=== PATIENT | male | born 1975 | race Caucasian/White ===

== ENCOUNTER 2020-03-22 12:57 | Emergency (ER) | payer MEDICARE, MEDICAID, SELFPAY ==
[2020-03-22 13:05] VITALS: BP 127/83; PULSE 71; RESP 14; TEMP 36.3; O2SAT 98; BMI 22.1
--- NOTE | 2020-03-22 13:13 | W.ED.GENADLT ---
HPI - General Adult General: Chief complaint: General Medical Stated complaint: MEDICATION REFILL Time Seen by Provider: 03/22/20 13:10 Source: patient Mode of arrival: ambulatory Limitations: no limitations History of Present Illness: HPI narrative: Patient is a very nice and polite 44-year-old male who presents to the ED today hoping to get help with a medication refill that he takes for anxiety. Patient tells me he normally takes Klonopin 1 mg twice daily for his anxiety and paranoid schizophrenia. He states he has recently moved to [place] and has been in and out of homeless shelters. He states his last group home took all of his medications and dispensed them into daily pill organizers and states in the process lost 4 tablets of his Klonopin. Patient tells me he forgot today was Tuesday and forgot to contact his prescribing physician on Tuesday for a refill. He states he is planning on contacting them on Tuesday. He is requesting enough medication to last him today and tomorrow. Review of Systems Psych: Reports: anxiety; Denies: irritability, suicidal ideation or homicidal ideation Physical Exam Const: COMMON NORMALS: no acute distress, average body habitus, patient oriented x3, no limitations, healthy appearing, alert and well nourished Neuro: COMMON NORMALS: patient oriented x3 SENSORIUM/ORIENTATION: Yes alert Psych: COMMON NORMALS: mental status grossly normal, Normal thought process present, cooperative, normal affect, speech normal, activity/motor behavior normal, denies hallucinations, denies homicidal ideation and denies suicidal ideation APPEARANCE: Yes grossly normal ATTITUDE: Yes calm ACTIVITY/MOTOR BEHAVIOR: Yes appropriate eye contact SPEECH: Yes normal speech MOOD & AFFECT: Yes euthymic mood THOUGHT PROCESS: Normal thought process present THOUGHT CONTENT: Yes Normal thought content present ATTENTION/CONCENTRATION: Yes attention grossly intact and Yes concentration grossly intact MEMORY/COGNITION: Yes memory grossly intact and Yes cognition grossly intact INSIGHT: Good insight present (Psych) JUDGEMENT: Good judgement present (Psych) Course Vital Signs: Vital signs: Vital Signs Temperature 97.3 F L 03/22/20 13:05 Pulse Rate 71 03/22/20 13:05 Respiratory Rate 14 03/22/20 13:05 Blood Pressure 127/83 03/22/20 13:05 Pulse Oximetry 98 03/22/20 13:05 MDM - General Adult MDM Narrative: Medical decision making narrative: Patient is concerned that the pharmacy will not be able to bill the Medicaid for the 4 tablets of Klonopin since he technically ran out early. Patient tells me he has absolutely no money to fill a prescription. I will write him for 5 tablets of Ativan in hopes that maybe they will fill this. Patient was told to tell the pharmacy to contact me if they have any questions. Discharge Plan Discharge Patient Disposition: Home Clinical Impression: Anxiety, Paranoid schizophrenia Condition: Stable Prescriptions: New lorazepam 1 mg tablet 1 mg PO BID PRN (Reason: anxiety) Qty: 5 RF: 0 No Action Unable to Assess RF: 0 Discharge Orders: Discharge ED (Routine); Ordered 03/22/20 Ordered By: Peace Clarke Patient Instructions: Lorazepam (By mouth), Anxiety (ED) Coding Level of Care Code ED Email Marketing Specialist for Germán Sherwood
== END 2020-03-22 13:29 | disposition home or self-care (01) ==
PROVIDERS: Emergency Provider Physician Assistant
DX: F41.9 Anxiety disorder, unspecified (principal); F20.0 Paranoid schizophrenia
CPT/HCPCS: 12345; 99281

== ENCOUNTER → 2020-04-24 08:38 | Outpatient (BNVA) | payer MEDICARE, MEDICAID, SELFPAY | PROVIDERS: Visit Provider Psychiatry & Neurology Psychiatry | DX: F10.20 Alcohol dependence, uncomplicated (principal); F12.20 Cannabis dependence, uncomplicated; F15.21 Other stimulant dependence, in remission; F17.200 Nicotine dependence, unspecified, uncomplicated | CPT/HCPCS: 99204 ==

== ENCOUNTER 2020-06-15 18:34 | Inpatient (IN) | payer MEDICARE, MEDICAID, SELFPAY ==
[2020-06-15 18:43] VITALS: BP 152/102; PULSE 75; RESP 18; O2SAT 96; BMI 19.2
--- NOTE | 2020-06-15 18:55 | PC.NURSE ---
Pt belongings and clothing removed, labeled and placed in psych cabinet. Pt has a black [place] tech shoulder backpack that contains knives that was sent to security.
--- NOTE | 2020-06-15 18:57 | XR_ITS ---
WS: [id number] PORTABLE CHEST HISTORY: sob COMPARISON: None available. Marked hyperexpansion of the lungs. There is a large bulla involving nearly 50% of the RIGHT thorax. Bullous centered in the RIGHT upper lung. Soft tissue noncalcified nodule measuring 10 mm in the RIGH T lung. This could potentially be a nipple shadow. No pleural effusion or pneumothorax. Cardiac size: Normal. Mediastinum/Aorta: Normal mediastinum. No osseous abnormality seen. XR/XR chest 1V portable [id number] IMPRESSION: 1. No pneumonia. 2. Large RIGHT upper lobe bulla. 3. 10 mm noncalcified nodule in the central RIGHT lung. Potentially this could be a nipple shadow or lung nodule. Recommend follow-up chest radiograph with n ipple markers.
[2020-06-15 19:16] VITALS: BP 134/91; PULSE 68; RESP 16; O2SAT 98
[2020-06-15 19:21] LABS: Add Urine Microscopic? NO; Charge for UA Resulting for Rev
[2020-06-15 19:22] LABS: Basophils # 0.1 10^3/uL (0.0-0.1); Basophils % 1.5 %; Eosinophils # 0.4 10^3/uL (0.0-0.8); Eosinophils % 5.1 %; Hemoglobin 16.4 g/dL (11.7-16.6); Lymphocytes # 2.4 10^3/uL (0.8-4.8); Lymphocytes % 34.5 %; Mean Corpuscular HGB Conc 33.5 g/dL (30.0-36.0); Mean Corpuscular Volume 89.6 fL (80-94); Mean Platelet Volume 10.7 fL (7.4-10.4); Monocytes # 0.8 10^3/uL (0.2-0.9); Monocytes % 10.9 %; Neutrophils # 3.28 10^3/uL (1.8-7.7); Neutrophils % 47.7 %; Nucleated Red Blood Cells % 0 %; Platelet Count 305 10^3/cmm (130-400); Red Blood Count 5.47 10^6/uL (4.1-5.3); Red Cell Distribution Width 13.6 % (12.1-15.1); White Blood Count 6.9 10^3/uL (4.0-10.0)
[2020-06-15 19:23] LABS: Bilirubin Urine Neg (Negative); Blood Urine Neg (Negative); Glucose Urine UA Norm (Normal); Ketones Urine Negative (Negative); Leukocyte Esterase Urine Negative (Negative); Nitrate Urine Negative (Negative); Protein Urine Neg (Negative); Specific Gravity, Urine 1.005 (1.005-1.030); Urine Appearance Clear (CLEAR); Urine Color Yellow (Yellow); Urobilinogen Urine Norm (Negative); pH Urine 7 (5-7)
[2020-06-15 19:33] LABS: Amphetamines Screen Urine Negative (Negative); Barbiturates Screen Urine Negative (Negative); Benzodiazepines Screen Urine Negative (Negative); Cocaine Screen Urine Negative (Negative); Opiate Screen Urine Negative (Negative); PCP Screen Urine Negative (Negative); THC Screen Urine Negative (Negative)
[2020-06-15 19:35] VITALS: PULSE 50
[2020-06-15 19:38] LABS: Alanine Aminotransferase 151 U/L (0-41); Albumin Level 4.2 g/dL (3.5-5.2); Alkaline Phosphatase 146 IU/L (40-130); Anion Gap 12.9 (5-19); Aspartate Amino Transferase 78 U/L (0-40); Blood Urea Nitrogen 13 mg/dL (6-20); Carbon Dioxide 26 mmol/L (22-29); Chloride 100 mmol/L (98-107); Globulin 2.8 g/dL (1.3-4.6); Glomerular Filtration Rate 120.9 mL/min (90-130); Glucose 73 mg/dL (65-115); Osmolality Calculated 279 mOsm/kg (285-295); Potassium 3.9 mmol/L (3.5-5.1); Sodium 135 mmol/L (136-145); Total Bilirubin 0.3 mg/dL (0.15-1.2)
[2020-06-15 19:41] LABS: Acetaminophen < 5.0 ug/mL (10-30); Alcohol Level < 10 mg/dL (0-10); Salicylate < 0.3 mg/dL (3-10)
[2020-06-15 21:05] VITALS: BP 136/85; PULSE 87; RESP 18; TEMP 37; O2SAT 95
[2020-06-15] MEDS: nicotine 2 mg Gum BUCCAL (21:40)
[2020-06-15 21:50] VITALS: RESP 18
--- NOTE | 2020-06-15 23:18 | ECG_ITS ---
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
--- NOTE | 2020-06-16 01:11 | PC.NURSE ---
Skin assessment revealed no wounds or injuries.
--- NOTE | 2020-06-16 02:06 | ED_ITS ---
HPI - Psych General: Chief Complaint: Psychiatric Symptoms Stated Complaint: SI, trouble breathing Time Seen by Provider: 06/15/20 18:51 History of Present Illness: HPI Narrative: 45-year-old male with a history of paranoid schizophrenia. He states that he has been out of his medicine for over a month. He hears voices. Most recently in the past couple days he has become suicidal, having thoughts about shooting himself in the head. He has access to his girlfriends gun. There were knives found in his bag on arrival. MD complaint: suicidal ideation Onset (ago): day(s) Duration: constant History of same: Yes Relieving factors: none Exacerbating factors: none Associated symptoms: Reports auditory hallucinations, delusions and suicidal ideation; Deny visual hallucinations If self harm: admits thoughts of self harm and has plan Review of Systems Const: Denies: fever(s) or chills Eyes: Denies: change in vision ENMT: Denies: odynophagia or sinus pain Card: Denies: chest pain, palpitations or irregular heart rhythm Resp: Reports: dyspnea and non-productive cough; Denies: productive cough or wheezing GI: Denies: abdominal pain, nausea or vomiting : Denies: difficulty urinating or hematuria Musc: Denies: neck pain Skin/Breast: Denies: rash or erythema Neuro: Denies: headache(s), dizziness or vertigo Psych: Reports: auditory hallucinations and suicidal ideation; Denies: visual hallucinations [facility] ED PFSH: Social History (Updated 04/24/20 @ 08:54 by Kristian Ryan LPN) Smoking and tobacco status: current every day smoker cigarettes Packs smoked per day: 1 Years cigarettes smoked: 30 Quit status (tobacco): has tried quititng Number of times tried to quit tobacco: 5 Second hand smoke exposure: No Physical Exam Const: GENERAL APPEARANCE: cooperative, disheveled and frail appearing ORIENTATION/CONSCIOUSNESS: Yes oriented to person, Yes oriented to place and Yes oriented to time HENMT: COMMON NORMALS: normocephalic, external ears normal and Normal external nose present HEAD & SCALP: normocephalic FACE & SINUS: normal facial exam NOSE: Normal external nose present and No nasal discharge present EXTERNAL EAR: Yes external ears normal Eye: COMMON NORMALS: Equal, round and reactive pupils present, EOMs intact bilaterally and conjunctivae normal EYELID: eyelids normal CONJUNCTIVA: Yes conjunctivae normal PUPIL: Yes Equal, round and reactive pupils present Neck/C-Spine: GENERAL: No tracheal deviation Chest: COMMONS NORMALS: normal inspection of the chest CHEST: No tenderness Resp: COMMON NORMALS: clear to auscultation bilaterally EFFORT & INSPECTIO N: No tachypneic, No respiratory distress, No retractions, No uses accessory muscles and No tracheal deviation AUSCULTATION: clear to auscultation bilaterally, no rhonchi, no wheezes and lung sounds not diminished Cardio: COMMON NORMALS: regular rate and regular rhythm RATE: regular rate RHYTHM: regular rhythm HEART SOUNDS: no murmurs PERIPHERAL PULSES: radial pulses present GI: INSPECTION: No abdominal distension AUSCULTATION: No Hyperactive bowel sounds present and No Hypoactive bowel sounds present PALPATION: No Guarding due to palpation present (GI) and No Rigid due to palpation PERCUSSION: no dullness to percussion and no tympanic to percussion Neuro: SENSORIUM/ORIENTATION: Yes oriented to person, Yes oriented to place and Yes oriented to time Psych: COMMON NORMALS: Normal thought process present and speech normal APPEARANCE: Yes unkempt ATTITUDE: Yes calm and Yes Withdrawn affect present ACTIVITY/MOTOR BEHAVIOR: Yes fidgeting SPEECH: Yes normal speech MOOD & AFFECT: Yes depressed mood and Yes constricted affect THOUGHT PROCESS: Normal thought process present THOUGHT CONTENT: Yes Suicidality present, Yes delusions and Yes Hallucination(s) present ATTENTION/CONCENTRATION: Yes attention grossly intact and Yes concentration grossly intact MEMORY/COGNITION: Yes memory grossly intact and Yes cognition grossly intact INSIGHT: Fair insight present (Psych) JUDGEMENT: Fair judgement present ( Psych) Skin: COMMON NORMALS: no rashes or lesions noted GENERAL SKIN EXAM: no rashes or lesions noted MDM - Psych MDM Narrative: Medical decision making narrative: Medically stable. Suicidal with a plan. Will admit to NPU. Psychiatry agrees to admit. Chest x-ray shows a large bleb in the right upper lobe and is otherwise stable. Lab Data: Labs: Lab Results 06/15/20 06/15/20 06/15/20 Range/Units 19:13 19:13 19:14 WBC 6.9 (4.0-10.0) 10^3/ uL RBC 5.47 H (4.1-5.3) 10^6/u L Hgb 16.4 (11.7-16.6) g/dL Hct 49.0 (42.0-52.0) % MCV 89.6 (80-94) fL MCH 30.0 (28.0-34.0) pg MCHC 33.5 (30.0-36.0) g/dL RDW 13.6 (12.1-15.1) % Plt Count 305 (130-400) 10^3/c mm MPV 10.7 H (7.4-10.4) fL Neut % (Auto) 47.7 % Lymph % (Auto) 34.5 % Cobb % (Auto) 10.9 % Eos % (Auto) 5.1 % Baso % (Auto) 1.5 % Neut # (Auto) 3.28 (1.8-7.7) 10^3/u L Lymph # (Auto) 2.4 (0.8-4.8) 10^3/u L Cobb # (Auto) 0.8 (0.2-0.9) 10^3/u L Eos # (Auto) 0.4 (0.0-0.8) 10^3/u L Baso # (Auto) 0.1 (0.0-0.1) 10^3/u L Nucleated RBC % (a uto) 0 % Nucleated RBCs # 0.0 /100WBC Sodium (136-145) mmol/L Potassium (3.5-5.1) mmol/L Chloride (98-107) mmol/L Carbon Dioxide (22-29) mmol/L Anion Gap (5-19) BUN (6-20) mg/dL Creatinine (0.7-1.2) mg/dL GFR Calculation (90-130) mL/min Glucose (65-115) mg/dL Calculated Osmolal ity (285-295) mOsm/k g Calcium (8.5-10.5) mg/dL Total Bilirubin (0.15-1.2) mg/dL AST (0-40) U/L ALT (0-41) U/L Alkaline Phosphata se (40-130) IU/L Total Protein (6.6-8.7) g/dL Albumin (3.5-5.2) g/dL Globulin (1.3-4.6) g/dL Urine Color Yellow (Yellow) Urine Appearance Clear (CLEAR) Urine pH 7 (5-7) Ur Specific Gravit y 1.005 (1.005-1.030) Urine Protein Neg (Negative) Urine Glucose (UA) Norm (Normal) Urine Ketones Negative (Negative) Urine Blood Neg (Negative) Urine Nitrate Negative (Negative) Urine Bilirubin Neg (Negative) Urine Urobilinogen Norm (Negative) mg/dL Ur Leukocyte Bebe ase Negative (Negative) Salicylates (3-10) mg/dL Urine Opiates Scre en Negative (Negative) ng/mL Acetaminophen (10-30) ug/mL Ur Barbiturates Sc reen Negative (Negative) ng/mL Ur Phencyclidine S crn Negative (Negative) ng/mL Ur Amphetamines Sc reen Negative (Negative) ng/mL U Benzodiazepines Scrn Negative (Negative) ng/mL Urine Cocaine Scre en Negative (Negative) ng/mL U Marijuana (THC) Screen Negative (Negative) ng/mL Ethyl Alcohol (0-10) mg/dL 06/15/20 Range/Units 19:14 WBC (4.0-10.0) 10^3/ uL RBC (4.1-5.3) 10^6/u L Hgb (11.7-16.6) g/dL Hct (42.0-52.0) % MCV (80-94) fL MCH (28.0-34.0) pg MCHC (30.0-36.0) g/dL RDW (12.1-15.1) % Plt Count (130-400) 10^3/c mm MPV (7.4-10.4) fL Neut % (Auto) % Lymph % (Auto) % Cobb % (Auto) % Eos % (Auto) % Baso % (Auto) % Neut # (Auto) (1.8-7.7) 10^3/u L Lymph # (Auto) (0.8-4.8) 10^3/u L Cobb # (Auto) (0.2-0.9) 10^3/u L Eos # (Auto) (0.0-0.8) 10^3/u L Baso # (Auto) (0.0-0.1) 10^3/u L Nucleated RBC % (a uto) % Nucleated RBCs # /100WBC Sodium 135 L (136-145) mmol/L Potassium 3.9 (3.5-5.1) mmol/L Chloride 100 (98-107) mmol/L Carbon Dioxide 26 (22-29) mmol/L Anion Gap 12.9 (5-19) BUN 13 (6-20) mg/dL Creatinine 0.7 (0.7-1.2) mg/dL GFR Calculation 120.9 (90-130) mL/min Glucose 73 (65-115) mg/dL Calculated Osmolal ity 279 L (285-295) mOsm/k g Calcium 9.0 (8.5-10.5) mg/dL Total Bilirubin 0.3 (0.15-1.2) mg/dL AST 78 H (0-40) U/L ALT 151 H (0-41) U/L Alkaline Phosphata se 146 H (40-130) IU/L Total Protein 7.0 (6.6-8.7) g/dL Albumin 4.2 (3.5-5.2) g/dL Globulin 2.8 (1.3-4.6) g/dL Urine Color (Yellow) Urine Appearance (CLEAR) Urine pH (5-7) Ur Specific Gravit y (1.005-1.030) Urine Protein (Negative) Urine Glucose (UA) (Normal) Urine Ketones (Negative) Urine Blood (Negative) Urine Nitrate (Negative) Urine Bilirubin (Negative) Urine Urobilinogen (Negative) mg/dL Ur Leukocyte Bebe ase (Negative) Salicylates < 0.3 L (3-10) mg/dL Urine Opiates Scre en (Negative) ng/mL Acetaminophen < 5.0 L (10-30) ug/mL Ur Barbiturates Sc reen (Negative) ng/mL Ur Phencyclidine S crn (Negative) ng/mL Ur Amphetamines Sc reen (Negative) ng/mL U Benzodiazepines Scrn (Negative) ng/mL Urine Cocaine Scre en (Negative) ng/mL U Marijuana (THC) Screen (Negative) ng/mL Ethyl Alcohol < 10 (0-10) mg/dL Discharge Plan Discharge Patient Disposition: Admitted As Inpatient Admit Provider: Pedrito Mejias Coding Level of Care Code ED Cash Management Associate for Germán Sherwood
[2020-06-16 06:00] VITALS: BP 135/92; PULSE 73; RESP 20; TEMP 36.7; O2SAT 94
--- NOTE | 2020-06-16 12:01 | PM.NHP ---
Providers/Chief Complaint Admitting Physician: Pedrito Mejias MD Chief Complaint: SI, trouble breathing HPI NPU History of Present Illness Jarett Frazier is a 45 year old male who presented to the emergency department with the following report: Chief Complaint: Psychiatric Symptoms Stated Complaint: SI, trouble breathing Time Seen by Provider: 06/15/20 18:51 History of Present Illness: HPI Narrative: 45-year-old male with a history of paranoid schizophrenia. He states that he has been out of his medicine for over a month. He hears voices. Most recently in the past couple days he has become suicidal, having thoughts about shooting himself in the head. He has access to his girlfriends gun. There were knives found in his bag on arrival. complaint: suicidal ideation Onset (ago): day(s) Duration: constant History of same: Yes Relieving factors: none Exacerbating factors: none Associated symptoms: Reports auditory hallucinations, delusions and suicidal ideation; Deny visual hallucinations If self harm: admits thoughts of self harm and has plan. He was admitted to the neuropsychiatric unit for definitive treatment of those issues. He presented today reporting that he has had at least 5 inpatient visits in the past. He reports that last year he had his last inpatient stay. He reports that he has not had follow-up recently but there was in his life that he had follow-up for those conditions and had multiple medication trials including Abilify Zyprexa, Haldol, Risperdal and reports he does not like the side effects of them. He was not a great historian but reported that he was not sure why he was brought into the hospital. We discussed his reported interaction with his girlfriend he reports he does understand why they had some concerns but he denies any issues leading to said behavior. Later was able to identify that he does struggle with irritability and we discussed that he was on disability and has been on disability for about 20 years. We discussed the diagnosis of schizophrenia and the fact that he had medications to try to effectively treated but did not like the side effects. He ultimately said he would try something new and we discussed the risks, benefits and alternatives of Geodon and he understood and agreed proceed as documented in this note. We also discussed his desire to go to [place] for a bit of a usp which have been arranged and we discussed him trying the medication and following up with [facility]. He endorses smoking cigarettes but otherwise denies alcohol marijuana or any other illicit drug use. He reports he had some issues in the past but did not elaborate. He denied previous rehab but did report a possible past rehab. Psychiatric history: As above. Substance abuse history: As above. Family history: Patient denies mental health or addiction issues on either side of the family and denies suicide attempts or completions in the family. Developmental history: He denies significant issues with his mother's or delivery of him or but then later said he did not know about that or whether he met his developmental milestones. He denies speech therapy but did endorse having special education classes during school. Psychosocial history: He did not report any additional contributory history. Meds NPU Home Medications Medication Instructions Recorded Confirmed Last Taken Type No Known Home Medications 06/15/20 06/15/20 Unknown History ziprasidone HCl 40 mg PO 0700,1700 30 Days #60 cap 06/16/20 Unknown Rx Allergies Allergy/AdvReac Type Severity Reaction Status Date / Time No Known Allergies Allergy Unverified 04/24/20 08:50 PFSH NPU PFSH: Social History (Updated 04/24/20 @ 08:54 by Kristian Ryan LPN) Smoking and tobacco status: current every day smoker cigarettes Packs smoked per day: 1 Years cigarettes smoked: 30 Quit status (tobacco): has tried quititng Number of times tried to quit tobacco: 5 Second hand smoke exposure: No Mental Status Exam MSE Comments: This is an underweight white male in hospital scrubs with limited grooming and eye contact. No abnormal movements except for mild psychomotor agitation. Mostly cooperative with exam in mild distress. Speech was normal rate and volume. Mood described as irritable affect congruent. Thought process organized. Thought content: Patient denied suicidal or homicidal ideation, no delusions reported or noted, he denied any auditory or visual hallucinations but then later said that he might hear voices. Attention and concentration were limited and memory was mostly reliable but none were formally tested. He is alert and oriented x3. Insight and judgment are limited, impulse control is limited, intellectual ability borderline to limited. Vitals/I&O/Wt Last Vital Signs Temp 98.1 F 06/16/20 06:00 Pulse 73 06/16/20 06:00 Resp 20 H 06/16/20 06:00 BP 135/92 06/16/20 06:00 Pulse Ox 94 06/16/20 06:00 Weight last 48 hrs Weight 58.967 kg Data NPU : 06/15/20 19:14 06/15/20 19:14 A&P Assessment and plan (1) Nicotine dependence, uncomplicated: Status: Acute (2) Methamphetamine use disorder, severe, in sustained remission, dependence: Status: Acute (3) Cannabis use disorder, severe, dependence: Status: Acute (4) Alcohol use disorder, severe, dependence: Status: Acute (5) Schizophrenia, history of multiple episodes, in partial remission: Status: Acute Additional A&P Information Is a 45-year-old white male who presented to the emergency department off of medication with a reported long history of schizophrenia on disability for that diagnosis who presents after reports of a conflict with his significant other wherein he reported lethality which he denies today. 1. Continue current medication. Start Geodon 40 mg p.o. twice daily with meals 2. Continue every 15 minute checks for safety. 3. Encourage individual, group and milieu therapies. 4. Encourage continued sober living follow-up to support his current recovery and will consider discharge to usp if opportunity is available. Involuntary Hold Information 96 Hour Hold: 96 Hour Involuntary Admission: No Attestations NPU Medical Necessity Statement*: Inpatient hospitalization is medically necessary and the clinically appropriate intervention at this time. We will monitor medications and make changes as indicated. Patient will be in the hospital for over two midnights. Likely length of stay 3 to 5 days. Patient will benefit greatly from inpatient stay but is a voluntary patient and is worried about not having a place to stay we will attempt to work with him and supporting discharge to a more stable living arrangement and attempt also to initiate effective medication. Coding Level of Care Code Acute Dredging Inspector for Germán Fwd Diagnoses Nicotine dependence, uncomplicated F17.200 Methamphetamine use disorder, severe, in sustained remission, dependence F15.21 Cannabis use disorder, severe, dependence F12.20 Alcohol use disorder, severe, dependence F10.20 Schizophrenia, history of multiple episodes, in partial remission F20.9
[2020-06-16 14:00] VITALS: BP 135/80; PULSE 56; RESP 18; TEMP 36.4; O2SAT 94
[2020-06-16] MEDS: acetaminophen 325 mg Tablet 650 MG PO ×2 (14:08→19:10)
--- NOTE | 2020-06-16 14:51 | PM.NDC ---
Reason for Visit Reason for Visit: SI, trouble breathing Brief History: History of Present Illness Jarett Frazier is a 45 year old male who presented to the emergency department with the following report: Chief Complaint: Psychiatric Symptoms Stated Complaint: SI, trouble breathing Time Seen by Provider: 06/15/20 18:51 History of Present Illness: HPI Narrative: 45-year-old male with a history of paranoid schizophrenia. He states that he has been out of his medicine for over a month. He hears voices. Most recently in the past couple days he has become suicidal, having thoughts about shooting himself in the head. He has access to his girlfriends gun. There were knives found in his bag on arrival. MD complaint: suicidal ideation Onset (ago): day(s) Duration: constant History of same: Yes Relieving factors: none Exacerbating factors: none Associated symptoms: Reports auditory hallucinations, delusions and suicidal ideation; Deny visual hallucinations If self harm: admits thoughts of self harm and has plan. He was admitted to the neuropsychiatric unit for definitive treatment of those issues. He presented today reporting that he has had at least 5 inpatient visits in the past. He reports that last year he had his last inpatient stay. He reports that he has not had follow-up recently but there was in his life that he had follow-up for those conditions and had multiple medication trials including Abilify Zyprexa, Haldol, Risperdal and reports he does not like the side effects of them. He was not a great historian but reported that he was not sure why he was brought into the hospital. We discussed his reported interaction with his girlfriend he reports he does understand why they had some concerns but he denies any issues leading to said behavior. Later was able to identify that he does struggle with irritability and we discussed that he was on disability and has been on disability for about 20 years. We discussed the diagnosis of schizophrenia and the fact that he had medications to try to effectively treated but did not like the side effects. He ultimately said he would try something new and we discussed the risks, benefits and alternatives of Geodon and he understood and agreed proceed as documented in this note. We also discussed his desire to go to [place] for a bit of a senior living which have been arranged and we discussed him trying the medication and following up with [facility]. He endorses smoking cigarettes but otherwise denies alcohol marijuana or any other illicit drug use. He reports he had some issues in the past but did not elaborate. He denied previous rehab but did report a possible past rehab. Psychiatric history: As above. Substance abuse history: As above. Family history: Patient denies mental health or addiction issues on either side of the family and denies suicide attempts or completions in the family. Developmental history: He denies significant issues with his mother's or delivery of him or but then later said he did not know about that or whether he met his developmental milestones. He denies speech therapy but did endorse having special education classes during school. Psychosocial history: He did not report any additional contributory history. Hospital Course Hospital Course He presented to the emergency department with psychosis, addiction and safety concerns. He was admitted to the neuropsychiatric unit for definitive treatment of those issues. Additionally there were concerns about many psychosocial challenges like economics and housing and we were able to get him connected to [employer]. After period of resistance he was open to a trial of and he showed some improvement. He was able to contract for safety prior to discharge. During the hospitalization, patient had routine laboratory studies which were within normal limits except for few outliers. Additionally there was a general medical evaluation which was also within normal limits and revealed no new acute processes. Discharge Summary: At the time of discharge, lethality was denied and psychosis was resolving. Mood and anxiety were well managed. Patient endorsed a plan to avoid all drugs of abuse and follow-up with the aftercare recommendations of the treatment team. Patient was evaluated and deemed to be absent credible lethality, and had achieved the maximum benefit from an inpatient hospitalization, so was discharged. Involuntary Hold Information 96 Hour Hold: 96 Hour Involuntary Admission: No Mental Status Exam MSE Comments: This is an underweight white male in hospital scrubs with limited grooming and eye contact. No abnormal movements except for mild psychomotor agitation. Mostly cooperative with exam in mild distress. Speech was normal rate and volume. Mood described as irritable affect congruent. Thought process organized. Thought content: Patient denied suicidal or homicidal ideation, no delusions reported or noted, he denied any auditory or visual hallucinations but then later said that he might hear voices. Attention and concentration were limited and memory was mostly reliable but none were formally tested. He is alert and oriented x3. Insight and judgment are limited, impulse control is limited, intellectual ability borderline to limited. Discharge Data Data Completed and Pending: Completed Studies During Hospitalization Category Date Time Status XR chest 1V rosemarie ble [id number] Urgent Exams 06/15/20 18:57 Completed Labs from last 24 hours 06/15/20 06/15/20 06/15/20 19:14 19:14 19:13 WBC 6.9 RBC 5.47 H Hgb 16.4 Hct 49.0 MCV 89.6 MCH 30.0 MCHC 33.5 RDW 13.6 Plt Count 305 MPV 10.7 H Neut % (Auto) 47.7 Lymph % (Auto) 34.5 [place] % (Auto) 10.9 Eos % (Auto) 5.1 Baso % (Auto) 1.5 Neut # (Auto) 3.28 Lymph # (Auto) 2.4 [place] # (Auto) 0.8 Eos # (Auto) 0.4 Baso # (Auto) 0.1 Nucleated RBC % (a uto) 0 Nucleated RBCs # 0.0 Sodium 135 L Potassium 3.9 Chloride 100 Carbon Dioxide 26 Anion Gap 12.9 BUN 13 Creatinine 0.7 GFR Calculation 120.9 Glucose 73 Calculated Osmolal ity 279 L Calcium 9.0 Total Bilirubin 0.3 AST 78 H ALT 151 H Alkaline Phosphata se 146 H Total Protein 7.0 Albumin 4.2 Globulin 2.8 Urine Color Yellow Urine Appearance Clear Urine pH 7 Ur Specific Gravit y 1.005 Urine Protein Neg Urine Glucose (UA) Norm Urine Ketones Negative Urine Blood Neg Urine Nitrate Negative Urine Bilirubin Neg Urine Urobilinogen Norm Ur Leukocyte Bebe ase Negative Salicylates < 0.3 L Urine Opiates Scre en Acetaminophen < 5.0 L Ur Barbiturates Sc reen Ur Phencyclidine S crn Ur Amphetamines Sc reen U Benzodiazepines Scrn Urine Cocaine Scre en U Marijuana (THC) Screen Ethyl Alcohol < 10 06/15/20 19:13 WBC RBC Hgb Hct MCV MCH MCHC RDW Plt Count MPV Neut % (Auto) Lymph % (Auto) [place] % (Auto) Eos % (Auto) Baso % (Auto) Neut # (Auto) Lymph # (Auto) [place] # (Auto) Eos # (Auto) Baso # (Auto) Nucleated RBC % (a uto) Nucleated RBCs # Sodium Potassium Chloride Carbon Dioxide Anion Gap BUN Creatinine GFR Calculation Glucose Calculated Osmolal ity Calcium Total Bilirubin AST ALT Alkaline Phosphata se Total Protein Albumin Globulin Urine Color Urine Appearance Urine pH Ur Specific Gravit y Urine Protein Urine Glucose (UA) Urine Ketones Urine Blood Urine Nitrate Urine Bilirubin Urine Urobilinogen Ur Leukocyte Bebe ase Salicylates Urine Opiates Scre en Negative Acetaminophen Ur Barbiturates Sc reen Negative Ur Phencyclidine S crn Negative Ur Amphetamines Sc reen Negative U Benzodiazepines Scrn Negative Urine Cocaine Scre en Negative U Marijuana (THC) Screen Negative Ethyl Alcohol Vitals: Last Vital Signs Temp 98.1 F 06/16/20 06:00 Pulse 73 06/16/20 06:00 Resp 20 H 06/16/20 06:00 BP 135/92 06/16/20 06:00 Pulse Ox 94 06/16/20 06:00 Discharge Plan Discharge Patient Disposition: Home Condition: Stable Prescriptions: No Action ziprasidone HCl 40 mg Capsule 40 mg PO 0700,1700 30 Days Qty: 60 RF: 1 Discharge Orders: Discharge Order (Routine); Ordered 06/17/20 Ordered By: Pedrito Mejias Referrals: [facility] [Other] - 07/07/20 8:30 am (You will need to establish primary Care with dr. Miryam White from there they will send referral for mental health services. ) [facility] [Other] (Please have your photo I.D. Come early as rooms are first come first serve. ) [facility] [Other] Discharge Diet: Regular Discharge Activity: Resume usual activity Patient Instructions: Ziprasidone (By mouth), Opioid Safety Discharge Attestations NPU Time Spent in Discharge Care*: less than 30 min Specific Discharge Activities: Specific discharge activities: educating patient, discussing with disability case manager/social workers/dc planners, documenting/other paperwork and evaluating patient/reviewing data Coding Level of Care Code Acute Chg FW DC note
[2020-06-16 15:06] VITALS: BP 135/92; PULSE 73; RESP 20; TEMP 36.7; O2SAT 94
--- NOTE | 2020-06-16 16:20 | PC.RESP ---
Smoking Cessation information sent to patient.
[2020-06-16] MEDS: ziprasidone hcl 40 mg Capsule PO (16:40)
[2020-06-16] MEDS: nicotine 2 mg Gum BUCCAL (19:10)
[2020-06-16 20:26] VITALS: BP 119/85; PULSE 75; RESP 16; TEMP 36.7; O2SAT 94
[2020-06-17] MEDS: ziprasidone hcl 40 mg Capsule PO (05:59)
[2020-06-17 06:00] VITALS: BP 136/78; PULSE 79; RESP 17; TEMP 36.5; O2SAT 99
[2020-06-17] MEDS: acetaminophen 325 mg Tablet 650 MG PO (06:53)
--- NOTE | 2020-06-17 08:48 | PC.SOCIAL ---
IMM completed on 06/17/20 @ [id number]. Copy of rights given to pt.
== END 2020-06-17 08:40 | disposition home or self-care (01) | DRG 885 ==
LOC: ER 18:51 → NP 20:42
PROVIDERS: Admitting Provider Psychiatry & Neurology Psychiatry; Emergency Provider Emergency Medicine; Visit Provider Psychiatry & Neurology Psychiatry
DX: F20.0 Paranoid schizophrenia (principal); R45.851 Suicidal ideations; F17.210 Nicotine dependence, cigarettes, uncomplicated; F12.20 Cannabis dependence, uncomplicated; F10.20 Alcohol dependence, uncomplicated; F15.21 Other stimulant dependence, in remission; J43.9 Emphysema, unspecified; T50.996A Underdosing of other drugs, medicaments and biological substances, initial encounter; Z91.128 Patient's intentional underdosing of medication regimen for other reason
CPT/HCPCS: 71045; 80053; 80306; 80307; 81003; 85025; 93005; 99285

== ENCOUNTER 2020-07-01 09:27 | Emergency (ER) | payer MEDICARE, MEDICAID, SELFPAY ==
[2020-07-01 09:36] VITALS: BP 151/83; PULSE 69; RESP 18; TEMP 36.8; O2SAT 97; BMI 21.4
--- NOTE | 2020-07-01 10:14 | ED_ITS ---
HPI - Anxiety General: Chief Complaint: Recheck/Abnormal Lab/Rx Stated Complaint: Anxiety/Wanting Meds Refilled Time Seen by Provider: 07/01/20 09:43 Source: patient Mode of arrival: ambulatory Limitations: no limitations History of Present Illness: HPI narrative: Patient is a 45-year-old male who presents to ED today with a complaint of anxiety. He is requesting a refill of his Klonopin medication. Patient tells me he has a provider out of town that normally prescribes this medication however he is due for a clinic visit for them to keep prescribing it and states he does not have a ride there. Patient states he has been out of this medication since April. He has since been admitted to [facility]. They placed him on Geodon however patient states this was for his schizophrenia, not his anxiety. Regardless he did not like the medication and flushed it down the toilet. Patient is not suicidal or homicidal. MD complaint: anxiety Onset (ago): day(s) Symptoms: other (shaking, nervous ) Severity: moderate Quality: constant Place: home History of similar episodes: Yes Relieving factors: other (prescription medication) Exacerbating factors: nothing Associated symptoms: Reports no associated symptoms; Deny chest pain, chills, fever(s), headache(s), nausea, palpitations, syncope or vomiting Review of Systems Const: Denies: fever(s) or chills Card: Denies: chest pain, palpitations, lightheadedness or syncope Resp: Denies: dyspnea GI: Denies: abdominal pain, nausea, vomiting or diarrhea Skin/Breast: Denies: rash Neuro: Denies: headache(s) Psych: Reports: anxiety; Denies: depression, hopelessness, loss of interest, suicidal ideation or homicidal ideation [facility] ED PFSH: Social History (Updated 04/24/20 @ 08:54 by Kristian Ryan LPN) Smoking and tobacco status: current every day smoker cigarettes Packs smoked per day: 1 Years cigarettes smoked: 30 Quit status (tobacco): has tried quititng Number of times tried to quit tobacco: 5 Second hand smoke exposure: No Physical Exam Const: COMMON NORMALS: no acute distress, patient oriented x3, alert and well nourished GENERAL APPEARANCE: cooperative and well kempt Resp: COMMON NORMALS: normal respiratory effort and clear to auscultation bilaterally AUSCULTATION: clear to auscultation bilaterally Cardio: COMMON NORMALS: regular rate and regular rhythm RATE: regular rate RHYTHM: regular rhythm Neuro: COMMON NORMALS: patient oriented x3 SENSORIUM/ORIENTATION: Yes alert Psych: COMMON NORMALS: mental status grossly normal, Normal thought process present, cooperative, normal affect, speech normal, denies homicidal ideation and denies suicidal ideation APPEARANCE: Yes grossly normal and Yes well kempt ATTITUDE: Yes calm ACTIVITY/MOTOR BEHAVIOR: Yes appropriate eye contact, No psychomotor agitation and Yes fidgeting SPEECH: Yes normal speech MOOD & AFFECT: Yes euthymic mood THOUGHT PROCESS: Normal thought process present THOUGHT CONTENT: Yes Normal thought content present ATTENTION/CONCENTRATION: Yes attention grossly intact and Yes concentration grossly intact MEMORY/COGNITION: Yes memory grossly intact and Yes cognition grossly intact INSIGHT: Good insight present (Psych) JUDGEMENT: Fair judgement present (Psych) Course Vital Signs: Vital signs: Vital Signs Temperature 98.2 F 07/01/20 09:36 Pulse Rate 69 07/01/20 09:36 Respiratory Rate 18 07/01/20 09:36 Blood Pressure 151/83 07/01/20 09:36 Pulse Oximetry 97 07/01/20 09:36 MDM - Anxiety MDM Narrative: Medical decision making narrative: I told patient I am not willing to write him a prescription for this today. He has been out since April and no concern for acute withdrawal. He was given one tab to go home with that he can take when he gets home as he feels like he is having an acute anxiety attack. He drove here so I told him I will not give it to him here as it is sedating. Patient agrees to plan. Recommend he continue to follow up with [facility]-he confirms he does have services here. Discharge Plan Discharge Patient Disposition: Home Clinical Impression: Anxiety Condition: Stable Prescriptions: No Action No Known Home Medications RF: 0 ziprasidone HCl 40 mg Capsule 40 mg PO 0700,1700 30 Days Qty: 60 RF: 1 Discharge Orders: Discharge ED (Routine); Ordered 07/01/20 Ordered By: Peace Clarke Patient Instructions: Generalized Anxiety Disorder, Anxiety (ED) Activity Restrictions/Additional Instructions: As we discussed continue to follow-up with behavioral health care for further management of your anxiety. Coding Level of Care Code ED Inspector Fuel Hose for Germán Sherwood
--- NOTE | 2020-07-01 13:44 | PC.SOCIAL ---
[facility] According to the desk reporter, Jarett was able to get into the program 06/17/2020 when he discharged from [facility]. He checked himself out of the program on 06/21/20. He called an ambulance and went to the hospital for being Suicidal. He did not return back to the program.
== END 2020-07-01 10:25 | disposition home or self-care (01) ==
PROVIDERS: Emergency Provider Physician Assistant
DX: F41.9 Anxiety disorder, unspecified (principal); F17.210 Nicotine dependence, cigarettes, uncomplicated
CPT/HCPCS: 99282

== ENCOUNTER 2020-07-01 21:53 | Inpatient (IN) | payer MEDICARE, MEDICAID, SELFPAY ==
--- NOTE | 2020-07-01 21:59 | W.ED.PSYCH ---
HPI - Psych General: Chief Complaint: Psychiatric Symptoms Stated Complaint: si Time Seen by Provider: 07/01/20 21:53 Source: patient Mode of arrival: ambulatory Limitations: no limitations History of Present Illness: HPI Narrative: 45-year-old male who is here with EMS for paranoia along with suicidal ideations. He states that he has a history of paranoid schizophrenia and has not been taking his medications. He has a history of methamphetamine abuse and denies any recent use. Patient here is very paranoid and states he no longer wants to live. He has no specific plan but states he does just want to kill himself. Denies any worsening improving factors. Associated symptoms: Reports depression Review of Systems Const: Denies: fever(s), chills, body aches or change in appetite Eyes: Denies: blurry vision or eye discomfort ENMT: Denies: throat pain or dental pain Card: Denies: chest pain Resp: Denies: dyspnea GI: Denies: abdominal pain, nausea, vomiting or diarrhea : Denies: dysuria Musc: Denies: neck pain or back pain Skin/Breast: Denies: rash Neuro: Denies: headache(s) Psych: Reports: depression and paranoia Hakeem/Lymph: Denies: easy bruising All/Imm: Denies: urticaria PFSH ED PFSH: Social History (Updated 04/24/20 @ 08:54 by Kristian Ryan LPN) Smoking and tobacco status: current every day smoker cigarettes Packs smoked per day: 1 Years cigarettes smoked: 30 Quit status (tobacco): has tried quititng Number of times tried to quit tobacco: 5 Second hand smoke exposure: No Physical Exam Const: COMMON NORMALS: no acute distress and patient oriented x3 GENERAL APPEARANCE: disheveled HENMT: COMMON NORMALS: normocephalic and atraumatic HEAD & SCALP: normocephalic and atraumatic Eye: COMMON NORMALS: Equal, round and reactive pupils present and EOMs intact bilaterally PUPIL: Yes Equal, round and reactive pupils present Neck/C-Spine: COMMON NORMALS: full ROM and supple Chest: COMMONS NORMALS: normal inspection of the chest and normal palpation of entire chest wall Resp: COMMON NORMALS: normal respiratory effort, No retractions, No use of accessory muscles and clear to auscultation bilaterally AUSCULTATION: clear to auscultation bilaterally Cardio: COMMON NORMALS: regular rate, regular rhythm and No murmurs present (Cardio) RATE: regular rate RHYTHM: regular rhythm GI: COMMON NORMALS: Normal to inspection, nondistended, normoactive bowel sounds present, Soft to palpation, non-tender and no masses PALPATION: Yes Soft to palpation Extremity: COMMON NORMALS: normal to inspection and full ROM Neuro: COMMON NORMALS: patient oriented x3, moves all extremities and no focal motor deficits Psych: COMMON NORMALS: mental status grossly normal, Normal thought process present and cooperative MOOD & AFFECT: Yes anxious THOUGHT PROCESS: Normal thought process present THOUGHT CONTENT: Yes Suicidality present Skin: COMMON NORMALS: no rashes or lesions noted and no wounds GENERAL SKIN EXAM: no rashes or lesions noted Course Vital Signs: Vital signs: Vital Signs Temperature 98.1 F 07/01/20 22:02 Pulse Rate 65 07/01/20 22:02 Respiratory Rate 20 H 07/01/20 22:02 Blood Pressure 149/85 07/01/20 22:02 Pulse Oximetry 97 07/01/20 22:02 MDM - Psych MDM Narrative: Medical decision making narrative: Patient presents here with paranoia along with suicidal ideations. Patient is medically cleared here and placed under 96-hour hold. I spoke to psychiatrist and will admit. Lab Data: Labs: Lab Results 07/01/20 07/01/20 Range/Units 22:05 22:05 WBC 9.7 (4.0-10.0) 10^3/ uL RBC 4.42 (4.1-5.3) 10^6/u L Hgb 13.4 (11.7-16.6) g/dL Hct 39.3 L (42.0-52.0) % MCV 88.9 (80-94) fL MCH 30.3 (28.0-34.0) pg MCHC 34.1 (30.0-36.0) g/dL RDW 13.8 (12.1-15.1) % Plt Count 278 (130-400) 10^3/c mm MPV 11.0 H (7.4-10.4) fL Neut % (Auto) 53.9 % Lymph % (Auto) 26.8 % [place] % (Auto) 13.7 % Eos % (Auto) 4.5 % Baso % (Auto) 1.0 % Neut # (Auto) 5.23 (1.8-7.7) 10^3/u L Lymph # (Auto) 2.6 (0.8-4.8) 10^3/u L [place] # (Auto) 1.3 H (0.2-0.9) 10^3/u L Eos # (Auto) 0.4 (0.0-0.8) 10^3/u L Baso # (Auto) 0.1 (0.0-0.1) 10^3/u L Nucleated RBC % (a uto) 0 % Nucleated RBCs # 0.0 /100WBC Sodium 136 (136-145) mmol/L Potassium 3.8 (3.5-5.1) mmol/L Chloride 100 (98-107) mmol/L Carbon Dioxide 26 (22-29) mmol/L Anion Gap 13.8 (5-19) BUN 13 (6-20) mg/dL Creatinine 0.9 (0.7-1.2) mg/dL GFR Calculation 90.4 (90-130) mL/min Glucose 123 H (65-115) mg/dL Calculated Osmolal ity 283 L (285-295) mOsm/k g Calcium 8.9 (8.5-10.5) mg/dL Total Bilirubin 0.4 (0.15-1.2) mg/dL AST 40 (0-40) U/L ALT 55 H (0-41) U/L Alkaline Phosphata se 154 H (40-130) IU/L Total Protein 6.7 (6.6-8.7) g/dL Albumin 4.1 (3.5-5.2) g/dL Globulin 2.6 (1.3-4.6) g/dL Salicylates < 0.3 L (3-10) mg/dL Acetaminophen < 5.0 L (10-30) ug/mL Ethyl Alcohol < 10 (0-10) mg/dL Discharge Plan Discharge Patient Disposition: Admitted As Inpatient Clinical Impression: Suicidal ideation, Chronic schizophrenia Condition: Stable Coding Level of Care Code ED Pricing/Signage Team Member for Puneetg Fwd Exam Comprehensive
[2020-07-01 22:02] VITALS: BP 149/85; PULSE 65; RESP 20; TEMP 36.7; O2SAT 97; BMI 25.8
[2020-07-01 22:14] LABS: Basophils # 0.1 10^3/uL (0.0-0.1); Eosinophils # 0.4 10^3/uL (0.0-0.8); Eosinophils % 4.5 %; Hematocrit 39.3 % (42.0-52.0); Hemoglobin 13.4 g/dL (11.7-16.6); Lymphocytes # 2.6 10^3/uL (0.8-4.8); Lymphocytes % 26.8 %; Mean Corpuscular HGB Conc 34.1 g/dL (30.0-36.0); Mean Corpuscular Hemoglobin 30.3 pg (28.0-34.0); Mean Corpuscular Volume 88.9 fL (80-94); Monocytes # 1.3 10^3/uL (0.2-0.9); Monocytes % 13.7 %; Neutrophils # 5.23 10^3/uL (1.8-7.7); Neutrophils % 53.9 %; Nucleated Red Blood Cells % 0 %; Platelet Count 278 10^3/cmm (130-400); Red Blood Count 4.42 10^6/uL (4.1-5.3); Red Cell Distribution Width 13.8 % (12.1-15.1); White Blood Count 9.7 10^3/uL (4.0-10.0)
[2020-07-01] MEDS: ziprasidone 20 mg/mL SDV IM (22:17)
[2020-07-01] MEDS: LORazepam 2 mg/mL INJ 1 mL IM (22:20)
[2020-07-01 22:31] LABS: Alanine Aminotransferase 55 U/L (0-41); Albumin Level 4.1 g/dL (3.5-5.2); Alkaline Phosphatase 154 IU/L (40-130); Anion Gap 13.8 (5-19); Aspartate Amino Transferase 40 U/L (0-40); Blood Urea Nitrogen 13 mg/dL (6-20); Calcium 8.9 mg/dL (8.5-10.5); Carbon Dioxide 26 mmol/L (22-29); Chloride 100 mmol/L (98-107); Globulin 2.6 g/dL (1.3-4.6); Glomerular Filtration Rate 90.4 mL/min (90-130); Glucose 123 mg/dL (65-115); Osmolality Calculated 283 mOsm/kg (285-295); Potassium 3.8 mmol/L (3.5-5.1); Sodium 136 mmol/L (136-145); Total Bilirubin 0.4 mg/dL (0.15-1.2); Total Protein 6.7 g/dL (6.6-8.7)
[2020-07-01 22:35] LABS: Acetaminophen < 5.0 ug/mL (10-30); Alcohol Level < 10 mg/dL (0-10); Salicylate < 0.3 mg/dL (3-10)
[2020-07-01 23:49] VITALS: BP 167/89; PULSE 78; RESP 16; O2SAT 96
[2020-07-02 00:02] VITALS: BP 167/89; PULSE 78; RESP 15; TEMP 36.6; O2SAT 95
[2020-07-02 00:52] VITALS: BP 121/73; PULSE 64; RESP 18; O2SAT 93
--- NOTE | 2020-07-02 02:31 | PC.NURSE ---
PM ASSESSMENT PT CAME TO [facility] SEDATED ON A GURNEY. PT RECEIVED 20MG IM GEODON AND 2MG IM ATIVAN PRIOR TO ADMISSION TO UNIT. PER ED STAFF, PT IS INTERACTING WITH INTERNAL STIMULI, HAS A HX OF PARANOID SCHIZOPHRENIA, REPORTS BEING OFF MEDICATIONS, AND USING METH IN THE PAST. PT DENIES CURRENT USE. NO UDS PRIOR TO ADMIT. HEART/LUNG SOUNDS ARE NORMAL, PT CHANGED INTO GREEN SCRUBS, SKIN INTACT, MULTIPLE TATTOOS NOTED. PT IS RESTING IN HIS ROOM WITH BOTH EYES SHUT, ON OCCASION, PT WILL YELL IN HIS SLEEP AND THRASH ABOUT THE BED. PHYSICIAN NOTIFIED OF ARRIVAL AND HOME MEDICATIONS WERE RECONCILED AT THAT TIME. WE WILL CONTINUE TO OBSERVE.
[2020-07-02 06:00] VITALS: BP 144/82; PULSE 61; RESP 16; TEMP 36.4; O2SAT 94
[2020-07-02] MEDS: ziprasidone hcl 40 mg Capsule PO ×2 (07:57→20:15)
--- NOTE | 2020-07-02 13:25 | P.HP_ITS ---
Providers/Chief Complaint Admitting Physician: Trini Kemp DO Chief Complaint: si HPI NPU History of Present Illness Jarett Frazier is a 45 year old male with longstanding history of methamphetamine use as well as reported history of schizophrenia although poor compliance, recently hospitalized for alcohol intoxication and suicidal ideation currently presenting after being discharged to assisted in [place] but it only stayed for 3 days prior to saying that he was suicidal and being taken to [facility] which subsequently sent him back to this local area. Patient is a poor historian with minimal effort stating that he is too tired to participate in interview and will not answer any questions. Patient currently denying any suicidal ideation. Patient has history of requesting Klonopin but is not currently requesting any medications and has historically been noncompliant with antipsychotic medications but only requesting benzodiazepines. When told that patient may not be staying for much longer if he does not participate in care, patient states that he needs to stay because he has nowhere else to go. Review of Systems General: Reports: Other (Does not participate in interview) Meds NPU Home Medications Medication Instructions Recorded Confirmed Last Taken Type ziprasidone HCl 40 mg PO 0700,1700 30 Days #60 cap 06/16/20 07/02/20 07/01/20 21:00 Rx Allergies Allergy/AdvReac Type Severity Reaction Status Date / Time No Known Allergies Allergy Unverified 07/02/20 00:53 PFSH NPU PFSH: Social History Smoking and tobacco status: current every day smoker cigarettes Packs smoked per day: 1 Years cigarettes smoked: 30 Quit status (tobacco): has tried quititng Number of times tried to quit tobacco: 5 Second hand smoke exposure: No Other Psychiatric History: Other Psychiatric History: Psych history from outpatient encounter in April 2020 and H&P from previous admission on 06/16/2020 were reviewed, no changes Mental Status Exam MSE Comments: Lying in bed, pulls cover overhead, sparse with regards to responses providing very brief linear responsive stating that he is tired, otherwise not answering any questions, poor eye contact, no physical or verbal agitation Unable to assess any other domains Vitals/I&O/Wt Last Vital Signs Temp 97.5 F L 07/02/20 06:00 Pulse 61 07/02/20 06:00 Resp 16 07/02/20 06:00 BP 144/82 07/02/20 06:00 Pulse Ox 94 07/02/20 06:00 Weight last 48 hrs Weight 79.379 kg Data NPU : 07/01/20 22:05 07/01/20 22:05 A&P Assessment and plan (1) Suicidal ideation: Status: Acute (2) History of schizophrenia: Status: Acute Additional A&P Information Unclear with regards to patient's motivations for admission given that he is not disorganized in speech or behavior and does not appear to be attending to any internal stimuli, reported to emergency department physician that he was suicidal and hearing things but refused to provide sample for urine drug screen although reporting that he states that he had not used methamphetamine for several days, patient with longstanding history of methamphetamine abuse and cannabis abuse. Patient with longstanding history of noncompliance with medication but typically drug-seeking for benzodiazepines. Patient was noncompliant with follow-up after last discharge from this facility less than 2 weeks ago. Involuntary, although patient likely has secondary gain for admission and does not truly pose an imminent threat of harm to self or others given his help seeking and drug-seeking behavior ADMIT to inpatient psychiatry for observation, coordination for safe discharge RESTART home medication Coordinate with licensed master social worker for post discharge mental health care follow-up Involuntary Hold Information 96 Hour Hold: 96 Hour Involuntary Admission: Yes 96 Hour Hold Ending Date: 07/07/20 96 Hour Hold Ending Time: 23:00 Attestations NPU Medical Necessity Statement*: Require psychiatric hospitalization to ensure medication stabilization, coordination for safe discharge Anticipate hospital stay to exceed 2 midnights Time Spent in Patient Care: Greater than 35 minutes Coding Level of Care Code Acute Industrial Relations Analyst for Germán Sherwood Diagnoses Suicidal ideation R45.851 History of schizophrenia Z86.59
[2020-07-02 14:00] VITALS: BP 134/89; PULSE 61; RESP 18; TEMP 36.4; O2SAT 93
[2020-07-02] MEDS: nicotine 2 mg Gum BUCCAL ×2 (17:37→20:15)
--- NOTE | 2020-07-02 18:54 | PC.RESP ---
Smoking Cessation information sent to patient.
[2020-07-02 19:08] LABS: Amphetamines Screen Urine Positive (Negative); Barbiturates Screen Urine Negative (Negative); Benzodiazepines Screen Urine Positive (Negative); Cocaine Screen Urine Negative (Negative); Opiate Screen Urine Positive (Negative); PCP Screen Urine Negative (Negative); THC Screen Urine Positive (Negative)
[2020-07-02] MEDS: acetaminophen 325 mg Tablet 650 MG PO (20:14)
[2020-07-02] MEDS: trazodone 50 mg Tablet PO (20:14)
[2020-07-02] MEDS: hyDROXYzine 25 mg Capsule 50 MG PO (20:15)
--- NOTE | 2020-07-02 20:45 | PC.NURSE ---
The patient requested Vistaril for anxiety and Trazodone for insomnia. Both given PO.
[2020-07-02] MEDS: blistex lip oint 7 gm Tube 1 APPLIC TOPICAL (20:49)
[2020-07-02 21:26] VITALS: BP 141/88; PULSE 109; RESP 16; TEMP 36.3
--- NOTE | 2020-07-02 22:57 | PC.NURSE ---
In bed sleeping.
[2020-07-03 06:00] VITALS: BP 152/90; PULSE 58; RESP 18; TEMP 36.7; O2SAT 94
[2020-07-03] MEDS: nicotine 21 mg Patch 1 PATCH TRANSDERMA (08:09)
[2020-07-03] MEDS: ziprasidone hcl 40 mg Capsule PO (08:10)
[2020-07-03] MEDS: hyDROXYzine 25 mg Capsule 50 MG PO (08:25)
[2020-07-03] MEDS: acetaminophen 325 mg Tablet 650 MG PO (08:25)
--- NOTE | 2020-07-03 09:59 | PM.NDC ---
Diagnoses at Discharge Discharge Diagnosis (1) Suicidal ideation: Status: Acute (2) History of schizophrenia: Status: Acute Reason for Visit Reason for Visit: si Hospital Course Hospital Course 45 year old male with longstanding history of methamphetamine use as well as reported history of schizophrenia although poor compliance, recently hospitalized for alcohol intoxication and suicidal ideation currently presenting [place] [facility] [place] but it only stayed for 3 days prior to saying that he was suicidal and being taken to the hospital which subsequently sent him back to this local area. Patient is a poor historian with minimal effort stating that he is too tired to participate in interview and will not answer any questions. Patient currently denying any suicidal ideation. Patient continued to minimally participate in care and interview. Patient continued to deny any substance use although urine drug screen was positive for opiates, amphetamines, benzodiazepines, cannabis. Patient continued to be preoccupied about getting Klonopin or any benzodiazepine stating that that the only medication that helps him and that he does not understand why he continues to come back if he cannot get the only medication that helps him. Patient was no longer endorsing suicidal ideation but was preoccupied with where he was going to go stating that he was homeless even though he was previously [facility] [place] [facility] [place] [facility] after [facility] [place] and [place] [facility] after [place]. Patient was provided resources once again to include placement to a [place] [facility] and follow-up mental health care by the social studies department chair. Patient continued to be evasive about his current risk to himself despite having a longstanding history of help seeking behavior to include hospital and drug-seeking behavior. Low to moderate risk with patient currently refusing to answer questions about suicidality but has a longstanding history of drug-seeking hospital seeking behavior although his risk may be elevated if he continues to abuse multiple substances and continues to be noncompliant with post discharge care leading to unexpected, impulsive behavior leading to an increased risk of harm. Risk mitigation included psychiatric hospitalization for observation, restarting home medication that the patient had been noncompliant with after previous discharge, recommendation to abstain from the use of substances and alcohol as well as recommending compliance with his medication, medication management follow-up and substance counseling/treatment in order to further mitigate his risk of harm to self and others. Patient was upset and was refusing to communicate his a substance of the treatment plan and stated that he was not sure if he would comply with these recommendations or not post discharge. Further inpatient psychiatric treatment would not reduce this patient's risk in the context of a patient refusing to participate in care and continued noncompliance with recommendation to abstain from substances and noncompliance with follow-up mental health care. Involuntary Hold Information 96 Hour Hold: 96 Hour Involuntary Admission: Yes 96 Hour Hold Ending Date: 07/07/20 96 Hour Hold Ending Time: 23:00 Mental Status Exam MSE Comments: Lying in bed, unshaven, disheveled, tired appearing, irritable, minimally participating in interview, fair eye contact Psychomotor activity is neither increased or decreased, no agitation Speech is normal volume, normal rate, spontaneous although requires prompting at times, not pressured I feel horrible, full range, not labile Alert and oriented to person, place, time, situation Memory and concentration are fair given poor effort during interview but did not appear to be cognitively impaired Intellectual functioning appears to be average at best based on vocabulary, interview Thought process, linear but brief, no flight of ideas, no looseness of associations Thought content, no delusions, does not appear to be attending to internal stimuli and did not appear to be internally preoccupied, no suicidal or homicidal ideation Insight and judgment appear to be fair Discharge Data Data Completed and Pending: Labs from last 24 hours 07/02/20 07/02/20 17:15 12:21 Urine Opiates Scre en Cancelled Positive H Ur Barbiturates Sc reen Cancelled Negative Ur Phencyclidine S crn Cancelled Negative Ur Amphetamines Sc reen Cancelled Positive H U Benzodiazepines Scrn Cancelled Positive H Urine Cocaine Scre en Cancelled Negative U Marijuana (THC) Screen Cancelled Positive H Vitals: Last Vital Signs Temp 98.1 F 07/03/20 06:00 Pulse 58 L 07/03/20 06:00 Resp 18 07/03/20 06:00 BP 152/90 07/03/20 06:00 Pulse Ox 94 07/03/20 06:00 Discharge Plan Discharge Patient Disposition: Home Condition: Stable Prescriptions: Continued ziprasidone HCl 40 mg Capsule 40 mg PO 0700,1700 30 Days Qty: 60 RF: 1 Discharge Orders: Discharge Order (Routine); Ordered 07/03/20 Ordered By: Trini Kemp Referrals: [facility] [Other] (Tuesday thru Tuesday 8AM-4:30PM Walk In Appointment) Homeless shelters in [facility] [Other] José Sheth MD [Physician] - 07/08/20 3:15 pm Discharge Diet: Regular Discharge Activity: Resume usual activity Patient Instructions: Ziprasidone (By mouth), Anxiety (DC), Opioid Safety Discharge Attestations NPU Time Spent in Discharge Care*: greater than 30 min Status at Discharge: Cognitive status at discharge: cognitively intact, Behavioral status at discharge: can be uncooperative, Functional status at discharge: independent ambulation Overall status at discharge: patient is back to baseline Coding Level of Care Code Acute Chg FW DC note Diagnoses Suicidal ideation R45.851 History of schizophrenia Z86.59
[2020-07-03 10:10] VITALS: BP 152/90; PULSE 58; RESP 18; TEMP 36.7; O2SAT 94
== END 2020-07-03 10:57 | disposition home or self-care (01) | DRG 885 ==
LOC: ER 23:15 → NP 23:20
PROVIDERS: Admitting Provider Psychiatry & Neurology Psychiatry; Emergency Provider Emergency Medicine; Visit Provider Psychiatry & Neurology Psychiatry
DX: F20.0 Paranoid schizophrenia (principal); R45.851 Suicidal ideations; F15.90 Other stimulant use, unspecified, uncomplicated; F12.90 Cannabis use, unspecified, uncomplicated; Z91.14 Patient's other noncompliance with medication regimen; Z59.0 Homelessness
CPT/HCPCS: 80053; 80306; 80307; 85025; 96372; 99282; 99285; J2060; J3486

== ENCOUNTER 2020-09-07 05:02 | Emergency (ER) | payer MEDICARE, MEDICAID, SELFPAY ==
[2020-09-07 05:09] VITALS: BP 150/94; PULSE 72; RESP 25; TEMP 36.8; O2SAT 99; BMI 21.1
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
[2020-09-07] MEDS: ipratropium-albuterol 3 mL Neb INHALATION (05:35)
[2020-09-07 05:36] VITALS: PULSE 80; RESP 26; O2SAT 96
[2020-09-07 05:43] VITALS: BP 141/102; PULSE 74; RESP 22; O2SAT 98
[2020-09-07 06:13] VITALS: BP 152/99; PULSE 64; RESP 22; O2SAT 98
[2020-09-07 06:36] VITALS: RESP 22; O2SAT 98
[2020-09-07] MEDS: oxyCODONE-APAP 5-325 mg Tablet 2 TAB PO (06:36)
[2020-09-07] MEDS: predniSONE 20 mg Tablet 60 MG PO (06:38)
[2020-09-07 06:45] VITALS: BP 141/87; PULSE 82; RESP 22; O2SAT 98
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
== END 2020-09-07 06:47 | disposition home or self-care (01) ==
PROVIDERS: Emergency Provider Emergency Medicine
DX: J45.41 Moderate persistent asthma with (acute) exacerbation (principal); S20.211A Contusion of right front wall of thorax, initial encounter; F17.210 Nicotine dependence, cigarettes, uncomplicated; X58.XXXA Exposure to other specified factors, initial encounter
CPT/HCPCS: 71101; 94640; 99283; J7512

== ENCOUNTER 2020-09-13 16:26 | Inpatient (IN) | payer MEDICARE, MEDICAID, SELFPAY ==
[2020-09-13 16:37] VITALS: BP 120/79; PULSE 110; RESP 18; TEMP 37.1; O2SAT 96
[2020-09-13 16:39] VITALS: BMI 21.7
[2020-09-13 17:08] LABS: Basophils # 0.1 10^3/uL (0.0-0.1); Basophils % 0.3 %; Eosinophils % 0.1 %; Hemoglobin 15.4 g/dL (11.7-16.6); Lymphocytes # 2.2 10^3/uL (0.8-4.8); Lymphocytes % 12.5 %; Mean Corpuscular HGB Conc 33.5 g/dL (30.0-36.0); Mean Corpuscular Hemoglobin 30.3 pg (28.0-34.0); Mean Corpuscular Volume 90.4 fL (80-94); Mean Platelet Volume 10.8 fL (7.4-10.4); Monocytes # 1.2 10^3/uL (0.2-0.9); Neutrophils # 14.09 10^3/uL (1.8-7.7); Neutrophils % 79.3 %; Nucleated Red Blood Cells % 0 %; Platelet Count 342 10^3/cmm (130-400); Red Blood Count 5.09 10^6/uL (4.1-5.3); Red Cell Distribution Width 13.2 % (12.1-15.1); White Blood Count 17.8 10^3/uL (4.0-10.0)
[2020-09-13 17:15] LABS: Add Urine Microscopic? NO; Charge for UA Resulting for Rev
[2020-09-13 17:21] LABS: Glucose Urine UA Norm (Normal); Protein Urine Neg (Negative); Urine Appearance Clear (CLEAR); Urine Color Straw (Yellow); pH Urine 5 (5-7)
[2020-09-13 17:22] LABS: Bilirubin Urine Neg (Negative); Blood Urine Neg (Negative); Ketones Urine Negative (Negative); Leukocyte Esterase Urine Negative (Negative); Nitrate Urine Negative (Negative); Urobilinogen Urine Norm (Negative)
[2020-09-13 17:29] LABS: Amphetamines Screen Urine Positive (Negative); Barbiturates Screen Urine Negative (Negative); Benzodiazepines Screen Urine Positive (Negative); Cocaine Screen Urine Negative (Negative); Opiate Screen Urine Negative (Negative); PCP Screen Urine Negative (Negative); THC Screen Urine Positive (Negative)
[2020-09-13 17:37] LABS: Alanine Aminotransferase 16 U/L (0-41); Alcohol Level 62 mg/dL (0-10); Alkaline Phosphatase 156 IU/L (40-130); Anion Gap 19.4 (5-19); Aspartate Amino Transferase 11 U/L (0-40); Blood Urea Nitrogen 10 mg/dL (6-20); Calcium 8.7 mg/dL (8.5-10.5); Carbon Dioxide 22 mmol/L (22-29); Chloride 100 mmol/L (98-107); Creatinine Clr Calc Pharmacy 99.1587; Globulin 2.5 g/dL (1.3-4.6); Glomerular Filtration Rate 90.4 mL/min (90-130); Glucose 139 mg/dL (65-115); Osmolality Calculated 287 mOsm/kg (285-295); Potassium 3.4 mmol/L (3.5-5.1); Sodium 138 mmol/L (136-145); Thyroid Stimulating Hormone 0.98 uIU/mL (0.27-4.20); Total Bilirubin 0.2 mg/dL (0.15-1.2); Total Protein 6.5 g/dL (6.6-8.7)
[2020-09-13 17:42] LABS: Acetaminophen < 5.0 ug/mL (10-30); Salicylate < 0.3 mg/dL (3-10)
[2020-09-13] MEDS: acetaminophen 325 mg Tablet 650 MG PO (19:44)
[2020-09-13 19:56] VITALS: BP 127/100; PULSE 100; RESP 18; O2SAT 96
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
[2020-09-13] MEDS: nicotine 2 mg Gum BUCCAL (21:32)
[2020-09-13 22:00] VITALS: BP 135/91; PULSE 102; RESP 18; TEMP 36.9; O2SAT 95
[2020-09-14] VITALS (11 sets, daily range): BP systolic 118–146; BP diastolic 80–88; PULSE 74–97; RESP 17–22; TEMP 36.4–36.8; O2SAT 95–98; BMI 21.7
[2020-09-14] MEDS: ipratropium-albuterol 3 mL Neb INHALATION ×3 (03:11→20:50)
--- NOTE | 2020-09-14 06:30 | PC.NURSE ---
pt refuse scheduled am sean.
--- NOTE | 2020-09-14 06:53 | PC.NURSE ---
45/M ...ON A 96'D SI/HI-PLAN TO RUN INTO TRAFFIC OR SLIT HIS WRIST, BAL 62-PLACED ON CIWA, UDS + BENZO'S, THC, AND METH HX SCHIZOAFFECTIVE DISORDER, RECENT BREAK UP WITH GF/ HOMELESS NOW.HEP C+-NO TYLENOL, INCREASED ANXIETY, IN JUNE PT WAS DISCHARGED FROM NPU ON GEODON 40MG PO BID, PT IS REFUSING THIS NOW. BROTHERS IN [facility], THIS IS WHERE HE WANTS TO GO AFTER THE 1ST AND HE GET HIS SOCIAL SECURITY. THIS IS WHERE ALL OF HIS FAMILY IS. PT STATES, I WANT TO USE MY KLONIPIN 1MG PO TID FOR MY ANXIETY TO KEEP MY SCHIZOPHRENIA IN CHECK, DR SYED AT [facility] IN [facility] [place] IS WHO GAVE THEM TO ME LAST IN MARCH.
[2020-09-14] MEDS: ibuprofen 200 mg Tablet 400 MG PO ×2 (06:54→23:21)
[2020-09-14] MEDS: folic acid 1 mg Tablet PO (08:32)
[2020-09-14] MEDS: multivitamin therapeutic Tablet 1 TAB PO (08:32)
[2020-09-14] MEDS: thiamine 100 mg Tablet PO (08:32)
[2020-09-14] MEDS: montelukast sodium 10 mg Tablet PO (08:32)
--- NOTE | 2020-09-14 09:41 | P.HP_ITS ---
Providers/Chief Complaint Admitting Physician: Pedrito Mejias MD Chief Complaint: SI/ HI/ PARANOID SCHIZOPHRENIC HPI NPU History of Present Illness Jarett Frazier is a 45 year old male Chief Complaint: Psychiatric Symptoms Stated Complaint: SI/ HI/ PARANOID SCHIZOPHRENIC Time Seen by Provider: 09/13/20 16:39 Source: patient and EMS Mode of arrival: EMS Limitations: no limitations History of Present Illness: HPI Narrative: Patient is a 45-year-old male with a history of schizophrenia who presents to the emergency department with suicidal ideation. He states he has been off his medications for about 2 months and earlier today he got in an argument with his girlfriend and it made him really upset that he thought about killing himself. His plan was to walk into traffic and allow a vehicle to hit him. He also has thoughts of hurting his girlfriend. He is here to be evaluated for the above. complaint: suicidal ideation Onset (ago): hour(s) Duration: constant History of same: Yes Relieving factors: none Exacerbating factors: drug use Context: recent alcohol abuse, recent drug abuse and significant life stressor Associated psychiatric symptoms: suicidal ideation and racing thoughts Associated symptoms: Reports suicidal ideation and racing thoughts; Deny auditory hallucinations, visual hallucinations, delusions or depression If self harm: admits thoughts of self harm and has plan. He was admitted to the neuropsychiatric unit for definitive treatment of those issues. He presents today reporting that he has had past psychiatric hospitalizations both here and away from here. He reports outpatient services in [facility]. He reports he has no medications but that he currently is not on them. He reports a suicide attempt about a year ago. He reports that he smokes 1 pack cigarettes a day, drinks alcohol occasionally, has marijuana occasionally, denies any other illicit drug use. He reports he has been to a rehab years ago and denies having a DUI. 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 When asked about medications that he is been on in the past that helped he endorsed that Klonopin was the only thing that was helpful. We reviewed all of his other medications and he talked about antipsychotics that he has had in the past. He talked about antidepressant treatment in the past and other anxiety medications and SSRIs. He initially was resistant to trying something other than Klonopin. But ultimately we discussed the risks, benefits and alternatives of Lamictal including Hernandez-Howard syndrome and propranolol and he understood the procedure as is documented in th is note. We reviewed his past notes including his last hospitalization and an outpatient assessment at [facility]. An excerpt is included below and he denies substantive changes at that time. Per his 04/24/2020 [facility] outpatient psychiatric evaluation: [facility] History and Physical Time In: 09:00 Time Out: 09:30 Chief Complaint: I need my Klonopin History of Present Illness: This is a 44-year-old male who comes in today with no prior treatment at this clinic or at [facility] since 2005 looks like, and I do not have access to that progress note. Patient comes in today after having presented to the emergency room a little over a month ago request benzodiazepines. Today he is requesting the same thing saying he wants to be on 3 mg of Klonopin daily as that is what he has been on in the past. He tells me that he has a history of schizophrenia and says that he has been hospitalized a number of times , but he does not give a specific number so we get somewhere between 5 and 10 times. He says these admissions are usually for 3 to 4 days in length but one of them may have been up to 2 weeks. When asking what kind of symptoms he had he said I just did not know what was going on and nothing made since . He said there were voices on and off but they were noncommand . When I ask him about strange thoughts such as paranoia he says oh yeah I thought everyone was out to get me . When asked him about treatment he said we will me and my doctors agreed that antipsychotics were not good for me and his anxiety keep anxiety under control I keep my schizophrenia under control so they were just using Klonopin for me . He says that he is been on Risperdal and Haldol and Zyprexa in the past and he says he had to stop them due to side effects, but he was not able to specifically say which side effects. He said he has had a number of suicide attempts in which he is tried to cut himself numerous times, overdose, hang himself, tried to shoot himself but denies any suicidal ideations at this time and he denies any other history of self-harm. He says his last admission was about 2 weeks ago for 4 days which would mean he was in the ER about 4 weeks ago to get benzodiazepines, and then presented to an admission in [place] somewhere a few weeks after that. Overall he is fairly nonspecific ab out his past, he is quite organized, logical, linear and goal-directed and he has no sign of internal preoccupation and he currently denies any hallucinations or delusions. He is quiet and soft-spoken and says he just wants his Klonopin. When I told him that if he does in fact have a history of schizophrenia benzodiazepines or not the primary treatment and as a matter fact or not primary long-term treatment management for any disorder. He says that he does not want any antipsychotics, and he does not want any antidepressants or any other management for anxiety other than Klonopin or Ativan. He tells me that he has had a history of heavy drinking in which he would drink a 12 pack/day on a daily basis with hard liquor as well. He says now he drinks on occasion and his last alcohol was within the last month he says. He also does use marijuana on a daily basis in the past but says now he uses on occasion and he last used 2 months ago. He also smokes 1 pack/day of cigarettes. He tells me that he has used methamphetamine in the past a little bit in my 20s , but when I asked him about legal history he spent about 4 years in retirement for possession and making methamphetamine. He most recently got out of retirement in September 2017 and is not on probation at this time. I told him that I feel uncomfortable using benzodiazepines as a primary treatment for any disorder, and that is especially the case if he has schizophrenia it would be woefully undertreated with only Klonopin. I told him that I be more than happy to discuss antipsychotic treatment and antidepressant treatment for anxiety and psychosis management but he refused these options. I told him that if he wished to stay at this clinic it might be best for us to get past medical records from hospitalizations or outpatient records and that I would be happy to review those and consider small doses of benzodiazepines as part of temporary treatment in the future but not primary treatment. It is unclear what he plans to do, but he indicated that he was not interested in this treatment plan. History Past Psychiatric History: Somewhere between 5 and 10 hospitalizations, the last of which was 2 weeks ago for 4 days, multiple suicide attempts and gestures by overdosing, trying to hang himself, trying to shoot himself, cutting his wrist. Family History: Noncontributory Past Medical History: Denies medical issues Substance Use History: Alcohol: Started as a teenager, has been a heavy daily drinker for years, he says he drinks on occasion now on last drink within the last month . Marijuana: Said heavy daily user since a teenager, last used 2 months ago. Methamphetamine: He minimize use today saying he use a little bit in my 20s , but he spent 4 years in retirement for methamphetamine possession and making meth. Nicotine: Smokes 1 pack/day, he says he has been on Wellbutrin and Chantix in the past for smoking cessation but that they did not help him. Social History: He has been in and out of homeless shelters over the last 2 years, currently he is renting a room from someone. He says he dropped out aft er the 11th grade because he got kicked out of school for not doing detentions, ended up getting his GED. He grew up between [place] and [place]. He has 4 children ages 26, 1915 and 13. Meds NPU Home Medications Medication Instructions Recorded Confirmed Last Taken Type albuterol sulfate 2 inh INHALATION Q4H PRN #6.7 gm 09/07/20 09/13/20 09/13/20 Rx methylprednisolone [Medrol (Ruben)] See Rx Instructions .ROUTE 09/07/20 09/13/20 09/13/20 Rx .COMPLEX #21 ea ibuprofen 200 - 400 mg PO Q6H PRN 09/13/20 09/13/20 09/13/20 History montelukast 10 mg PO DAILY 09/13/20 09/13/20 09/13/20 History Allergies Allergy/AdvReac Type Severity Reaction Status Date / Time acetaminophen [From Tylenol] Allergy Unknown Verified 09/14/20 05:43 PFSH NPU PFSH: Medical History (Reviewed 09/13/20 @ 20:50 by [place]zula Jos[place] [facility] Chronic schizophrenia History of schizophrenia Social History (Reviewed 09/13/20 @ 20:50 by Urszula Jos[place] [facility] [place] Smoking and tobacco status: current every day smoker cigarettes Packs smoked per day: 1 Years cigarettes smoked: 30 Quit status (tobacco): has tried quititng Number of times tried to quit tobacco: 5 Second hand smoke exposure: No Mental Status Exam MSE Comments: This is an underweight white male in hospital scrubs with limited grooming and eye contact. No abnormal movements except for mild psychomotor agitation. Mostly cooperative with exam in mild distress. Speech was normal rate and volume. Mood described as frustrated and sad, affect congruent. Thought process organized. Thought content: Patient denied suicidal or homicidal ideation, no delusions reported or noted, he denied any auditory or visual hallucinations. Attention and concentration were limited and memory was mostly reliable but none were formally tested. He is alert and oriented x3. Insight and judgment are limited, impulse control is limited, intellectual ability borderline to limited. Vitals/I&O/Wt Last Vital Signs Temp 98.2 F 09/14/20 06:00 Pulse 76 09/14/20 06:00 Resp 18 09/14/20 06:00 BP 146/88 09/14/20 06:00 Pulse Ox 95 09/14/20 06:00 Weight last 48 hrs Weight 66.678 kg Weight 66.678 kg Data NPU : 09/13/20 17:00 09/13/20 17:00 A&P Assessment and plan (1) Suicidal ideation: Status: Acute (2) Polysubstance abuse: Status: Acute (3) Asthma with exacerbation: Status: Acute Qualifiers: Asthma persistence: persistent Asthma severity: moderate Qualified Code(s): J45.41 - Moderate persistent asthma with (acute) exacerbation (4) Chest wall contusion: Status: Acute Qualifiers: Encounter type: initial encounter Laterality: right Qualified Code(s): S20.211A - Contusion of right front wall of thorax, initial encounter (5) Substance induced mood disorder: Status: Acute (6) Methamphetamine abuse: Status: Acute (7) Opiate abuse, episodic: Status: Acute (8) Cannabis abuse: Status: Acute (9) Benzodiazepine abuse: Status: Acute (10) Methamphetamine use disorder, severe, in sustained remission, dependence: Status: Acute (11) Cannabis use disorder, severe, dependence: Status: Acute (12) Schizophrenia, history of multiple episodes, in partial remission: Status: Acute (13) Nicotine dependence, uncomplicated: Status: Acute (14) Alcohol use disorder, severe, dependence: Status: Acute Additional A&P Information This is a 45-year-old white male with a long history of mental health and addiction issues who presents downplaying his addiction issues with positive UDS for methamphetamine as well as alcohol benzodiazepines and cannabis who presents reporting about an argument with his girlfriend reporting that he can go back there but that he is open reluctantly to medication interventions other than Klonopin. 1. Continue current medication. Start propranolol 20 mg p.o. 3 times daily and Lyrica 25 mg p.o. every morning. 2. Continue every 15 minute checks for safety. 3. Encourage individual, group and milieu therapies. 4. Encourage sober living treatment after discharge at the highest level of care to which he is willing to commit. 5. Patient reports not desiring to return to the [facility] home he came from but reports that he will have money to address his plan to go to [place] on 23 September when he gets paid. We will need to assist him in finding a transitional location prior to getting money for [place]. 6. We will evaluate for safety given the 96-hour hold. Involuntary Hold Information 96 Hour Hold: 96 Hour Involuntary Admission: Yes 96 Hour Hold Ending Date: 09/19/20 96 Hour Hold Ending Time: 00:01 Attestations NPU Medical Necessity Statement*: Inpatient hospitalization is medically necessary and the clinically appropriate intervention at this time. We will monitor medications and make changes as indicated. Patient will be in the hospital for over two midnights. Likely length of stay 3 to 5 days. Coding Level of Care Code Acute Boat Crew Deck Hand for Germán Sherwood Diagnoses Suicidal ideation R45.851 Polysubstance abuse F19.10 Asthma with exacerbation J45.41 Asthma persistence: persistent Asthma severity: moderate Chest wall contusion S20.211A Encounter type: initial encounter Laterality: right Substance induced mood disorder F19.94 Methamphetamine abuse F15.10 Opiate abuse, episodic F11.10 Cannabis abuse F12.10 Benzodiazepine abuse F13.10 Methamphetamine use disorder, severe, in sustained remission, dependence F15.21 Cannabis use disorder, severe, dependence F12.20 Schizophrenia, history of multiple episodes, in partial remission F20.9 Nicotine dependence, uncomplicated F17.200 Alcohol use disorder, severe, dependence F10.20
[2020-09-14] MEDS: lamoTRIgine 25 mg Tablet PO (10:38)
[2020-09-14] MEDS: nicotine 2 mg Gum BUCCAL (14:26)
[2020-09-14] MEDS: guaiFENesin-codeine UDC 10 mL PO (23:20)
[2020-09-14] MEDS: propranolol 20 mg Tablet PO (23:22)
--- NOTE | 2020-09-14 23:25 | PC.NURSE ---
pt noted with dry persistent tight cough, Dr Mejias notified. Order for robutussin dm with codeine received and given.
--- NOTE | 2020-09-15 00:30 | PC.NURSE ---
pt resting quietly with both eyes closed.
[2020-09-15 06:00] VITALS: BP 135/68; PULSE 81; RESP 16; TEMP 36.8; O2SAT 96
--- NOTE | 2020-09-15 06:26 | PC.NURSE ---
pt refusing scheduled am sean
[2020-09-15] MEDS: guaiFENesin-codeine UDC 10 mL PO ×3 (06:54→21:04)
--- NOTE | 2020-09-15 07:15 | PC.NURSE ---
pt requesting cough med, robutussin dm w/codeine 10ml given.
[2020-09-15] MEDS: montelukast sodium 10 mg Tablet PO (08:33)
[2020-09-15] MEDS: folic acid 1 mg Tablet PO (08:33)
[2020-09-15] MEDS: propranolol 20 mg Tablet PO ×3 (08:33→21:04)
[2020-09-15] MEDS: lamoTRIgine 25 mg Tablet PO (08:33)
[2020-09-15] MEDS: thiamine 100 mg Tablet PO (08:33)
[2020-09-15] MEDS: multivitamin therapeutic Tablet 1 TAB PO (08:33)
--- NOTE | 2020-09-15 09:13 | PM.NPN ---
Subjective NPU Subjective: Interval history: Jarett presents today reporting that he still feeling really sore and frustrated about his situation. He does however report that he does feel better and is starting to get some conceptualization of how he can turn his life around and rebound from the situation. We discussed his plan to return to [place] hopefully with resources available for to him on the third of the month. We discussed the possibilities of discharge in the next 48 hours with him likely staying in a care home of some sort while he awaits the money and that he will go from there. Mental Status Exam MSE Comments: This is an underweight white male in hospital scrubs with limited grooming and eye contact. No abnormal movements except for mild psychomotor retardation. Mostly cooperative with exam in no acute distress. Speech was normal rate and volume. Mood described as feeling a little better, affect congruent. Thought process organized. Thought content: Patient denied suicidal or homicidal ideation, no delusions reported or noted, he denied any auditory or visual hallucinations. Attention and concentration were limited and memory was mostly reliable but none were formally tested. He is alert and oriented x3. Insight and judgment are limited, impulse control is limited, intellectual ability borderline to limited. Vitals/I&O/Wt Last Vital Signs Temp 9806 F H 09/14/20 21:52 Pulse 97 09/14/20 21:52 Resp 17 09/14/20 21:52 BP 131/80 09/14/20 21:52 Pulse Ox 95 09/14/20 21:52 Weight last 48 hrs Weight 66.678 kg Weight 66.678 kg Data NPU : 09/13/20 17:00 09/13/20 17:00 A&P Additional A&P Information (1) Suicidal ideation: (2) Polysubstance abuse: (3) Asthma with exacerbation: (4) Chest wall contusion: (5) Substance induced mood disorder: (6) Methamphetamine abuse: (7) Opiate abuse, episodic: (8) Cannabis abuse: (9) Benzodiazepine abuse: (10) Methamphetamine use disorder, severe, in sustained remission, dependence: (11) Cannabis use disorder, severe, dependence: (12) Schizophrenia, history of multiple episodes, in partial remission: (13) Nicotine dependence, uncomplicated: (14) Alcohol use disorder, severe, dependence: Additional A&P Information This is a 45-year-old white male with a long history of mental health and addiction issues who presents downplaying his addiction issues with positive UDS for methamphetamine as well as alcohol benzodiazepines and cannabis who presents reporting about an argument with his girlfriend reporting that he can go back there but that he is open reluctantly to medication interventions other than Klonopin. 1. Continue current medication. 2. Continue every 15 minute checks for safety. 3. Encourage individual, group and milieu therapies. 4. Encourage sober living treatment after discharge at the highest level of care to which he is willing to commit. 5. Patient reports not desiring to return to the [facility] he came from but reports that he will have money to address his plan to go to [place] on 23 September when he gets paid. We will need to assist him in finding a transitional location prior to getting money for [place]. 6. We will evaluate for safety given the 96-hour hold. Involuntary Hold Information 96 Hour Hold: 96 Hour Involuntary Admission: Yes 96 Hour Hold Ending Date: 09/19/20 96 Hour Hold Ending Time: 00:01 Attestations NPU Medical Necessity Statement*: Inpatient hospitalization is medically necessary and the clinically appropriate intervention at this time. We will monitor medications and make changes as indicated.Likely length of stay 1-3 days. Coding Level of Care Code Acute Hotel Maintenance Worker for Germán Sherwood
[2020-09-15 14:00] VITALS: BP 122/79; PULSE 65; RESP 17; TEMP 36.9; O2SAT 97
[2020-09-15] MEDS: nicotine 2 mg Gum BUCCAL (14:26)
--- NOTE | 2020-09-15 15:23 | CTR_ITS ---
PROCEDURE INFORMATION: Exam: CT Chest Without Contrast; Diagnostic Exam date and time: 09/15/2020 3:23 PM Age: 45 years old Clinical indication: Cough and shortness of breath; Additional info: Cough, possibloe copd TECHNIQUE: Imaging protocol: Diagnostic computed tomography of the chest without contrast. Radiation optimization: All CT scans at this facility use at least one of these dose optimization techniques: automated exposure control; mA and/or kV adjustment per patient size (includes targeted exams where dose is matched to clinical indication); or iterative reconstruction. COMPARISON: CR (CHEST, ) 09/07/2020 5:33 AM RADIATION DOSE METRICS: Total DLP (mGy-cm): 479 FINDINGS: Lungs: Severe emphysematous changes with a large right upper lobe bulla. Left lower lobe 5.2 mm nodule. Right middle lobe 5.8 mm nodule. Pleural spaces: Unremarkable. No pneumothorax. No pleural effusion. Heart: Unremarkable. No cardiomegaly. No pericardial effusion. Aorta: Unremarkable. No aortic aneurysm. Lymph nodes: Unremarkable. No enlarged lymph nodes. Bones/joints: Unremarkable. No acute fracture. Soft tissues: Unremarkable. CT/CT chest wo con [id number] IMPRESSION: 1. Negative for fracture or dislocation, contour abnormalities described of the right 3rd and 4th ribs are not appreciated on this exam. 2. Severe emphysematous changes with a large right upper lobe bulla. 3. Left lower lobe 5.2 mm nodule and right middle lobe 5.8 mm nodule. For patients at low risk (minimal or absent history of smoking and of other known risk factors), no routine follow-up is indicated. For patients at high risk (history of smoking or of other known risk factors), consider optional CT Chest at 12 months. (Reference: Tamar) REFERENCES: Tamar Rodriges, et al. Guidelines for Management of Incidental Pulmonary Nodules Detected on CT Images: From the Fleischner Society 2017. Radiology. 2017;284(1):228-243. Radiation Dose CTDIVOL = (mGy): DLP = 479 (mGy-cm)
[2020-09-15 16:00] VITALS: PULSE 85; RESP 16; O2SAT 97
[2020-09-15] MEDS: albuterol 8 gm MDI 1 PUFF INHALATION ×2 (16:00→20:18)
--- NOTE | 2020-09-15 16:56 | PC.RESP ---
Smoking Cessation information sent to patient.
--- NOTE | 2020-09-15 17:50 | P.CONIM_ITS ---
Providers/Reason For Consult Consulting Physician/Specialty*: Dr. Veronica MD/internal medicine Reason for Consult*: Cough, possible history of lung bleb Attending Physician: Pedrito Mejias MD History of Present Illness History of Present Illness Jarett Frazier is a 45 year old male with past medical history of COPD on albuterol inhalers at home being admitted to Neuropsych Unit for suicidal ideation, polysubstance abuse. Internal medicine was consulted for patient having increased cough with mild expectoration. Patient denies any difficulty in breathing. States his cough is slightly more than usual. Denies any change in expectoration. Denies being hospitalized ever for COPD exacerbation or any past history of intubation. Denies known history of tuberculosis. Patient smokes 1 pack/day. During hospitalization patient has remained afebrile, on room air and hemodynamically stable. Review of Systems General: Reports: 10 or more systems reviewed and unremarkable except in HPI and below Const: Denies: fever(s), chills, body aches, change in appetite, change in weight, malaise, night sweats, diaphoresis, change in sleep pattern, daytime sleepiness or snoring Eyes: Denies: change in vision, blurry vision, photophobia, eye discomfort or eye discharge ENMT: Denies: throat pain, enlarged tonsils, hoarseness, mouth pain, oral sores, dry mouth, tinnitus, nasal congestion or post nasal drip Card: Denies: chest pain, palpitations, irregular heart rhythm, edema, swelling of feet/ankles, lightheadedness, syncope, pre-syncope, dyspnea on exertion, orthopnea, leg pain with exertion or acrocyanosis Resp: Denies: dyspnea, productive cough, non-productive cough, wheezing, stridor, pain on inspiration, change in phlegm color, hemoptysis or chest congestion GI: Denies: abdominal pain, nausea, vomiting, hematemesis, coffee ground emesis, dysphagia, heartburn, diarrhea, constipation, bloating, GI cramping, change in bowel habits, pain on defecation, hematochezia or melena : Denies: flank pain, difficulty urinating, dysuria, urinary frequency, urinary urgency, urinary hesitancy, urinary dribbling, difficulty starting urination, change in urine stream, nocturia or hematuria Musc: Denies: neck pain, back pain, extremity pain, joint pain, joint swelling, joint redness, joint stiffness or limited range of motion Neuro: Denies: headache(s), numbness in extremities, weakness in extremities, sensory changes, lack of coordination, difficulty walking, frequent falls, dizziness, vertigo, confusion, Slurred speech present, difficulty communicating thoughts or seizure-like activity Psych: Denies: anxiety, depression, mood swings, panic attacks, hopelessness or irritability Endo: Denies: polyuria, polydipsia, tired all the time, cold intolerance, excessive sweating, flushing or heat intolerance Hakeem/Lymph: Denies: easy bruising or easy bleeding All/Imm: Denies: tongue swelling, facial swelling or acute wheezing Meds/Allergies Home Medications and Allergies Home Medications Medication Instructions Recorded Confirmed Last Taken Type ibuprofen 200 - 400 mg PO Q6H PRN 09/13/20 09/13/20 09/13/20 History albuterol sulfate 2 inh INHALATION Q4H PRN 30 Days 09/16/20 Unknown Rx #6.7 gm folic acid 1 mg PO DAILY 30 Days #30 tab 09/16/20 Unknown Rx lamotrigine 25 mg PO DAILY 18 Days #39 tab 09/16/20 Unknown Rx lamotrigine [Lamictal] 100 mg PO DAILY 30 Days #30 tab 09/16/20 Unknown Rx montelukast 10 mg PO DAILY 30 Days #30 tab 09/16/20 Unknown Rx propranolol 20 mg PO TID 30 Days #90 tab 09/16/20 Unknown Rx thiamine mononitrate (vit B1) 100 mg PO DAILY 30 Days #30 tab 09/16/20 Unknown Rx [Vitamin B-1 (mononitrate)] ziprasidone HCl 40 mg PO 0700,1700 30 Days #60 cap 09/16/20 Unknown Rx Allergies Allergy/AdvReac Type Severity Reaction Status Date / Time acetaminophen [From Tylenol] Allergy Unknown Verified 09/14/20 05:43 Current Medications Current Medications Generic Name Dose Route Start Last Admin Trade Name Freq PRN Reason Stop Dose Admin Albuterol/Ipratropium 3 ml 09/14/20 00:49 09/14/20 20:50 Ipratropium-Albuterol 3 Ml Neb INHALATION 3 ml Q4H PRN Administration SHORTNESS OF BREATH Folic Acid 1 mg 09/14/20 09:00 09/15/20 08:33 Folic Acid 1 Mg Tablet PO 1 mg DAILY HARLEY Administration Guaifenesin/Codeine Phosphate 10 ml 09/14/20 20:52 09/15/20 13:51 Guaifenesin-Codeine Udc 10 Ml PO 10 ml Q4H PRN Administration COUGH Ibuprofen 400 mg 09/14/20 00:47 09/14/20 23:21 Ibuprofen 200 Mg Tablet PO 400 mg Q6H PRN Administration PAIN/HEADACHE Lamotrigine 25 mg 09/14/20 10:19 09/15/20 08:33 Lamotrigine 25 Mg Tablet PO 25 mg DAILY HARLEY Administration Montelukast Sodium 10 mg 09/14/20 09:00 09/15/20 08:33 Montelukast Sodium 10 Mg Tablet PO 10 mg DAILY HARLEY Administration Multivitamins Therapeutic 1 tab 09/14/20 09:00 09/15/20 08:33 Multivitamin Therapeutic Tablet PO 1 tab DAILY HARLEY Administration Nicotine Polacrilex 2 mg 09/13/20 18:52 09/15/20 14:26 Nicotine 2 Mg Gum BUCCAL 2 mg Q2H PRN Administration NICOTINE WITHDRAWAL Propranolol HCl 20 mg 09/14/20 15:00 09/15/20 14:26 Propranolol 20 Mg Tablet PO 20 mg TID HARLEY Administration Thiamine Mononitrate 100 mg 09/14/20 09:00 09/15/20 08:33 Thiamine 100 Mg Tablet PO 100 mg DAILY HARLEY Administration Ziprasidone 40 mg 09/14/20 07:00 09/15/20 06:36 Ziprasidone Hcl 40 Mg Capsule PO Not Given 0700,1700 HARLEY PFSH Acute PFSH: Medical History (Updated 09/16/20 @ 13:51 by John Martin MD) Chronic schizophrenia COPD (chronic obstructive pulmonary disease) Emphysema lung History of schizophrenia Social History (Reviewed 09/13/20 @ 20:50 by Urszula Joshi MD, [facility] [place]) Smoking and tobacco status: current every day smoker cigarettes Packs smoked per day: 1 Years cigarettes smoked: 30 Quit status (tobacco): has tried quititng Number of times tried to quit tobacco: 5 Second hand smoke exposure: No Vitals/I&O/Wt Last Vital Signs Temp 98.5 F 09/15/20 14:00 Pulse 65 09/15/20 14:00 Resp 17 09/15/20 14:00 BP 122/79 09/15/20 14:00 Pulse Ox 97 09/15/20 14:00 Weight last 48 hrs Weight 66.678 kg Physical Exam Narrative: EXAM NARRATIVE: EXAM NARRATIVE: General: No acute distress, AO x3, HEENT: PERRLA, pupils bilaterally equal and reactive Chest: Bilateral bronchial breath sounds, decreased air entry in the right upper zone, air entry all over otherwise. CVS: S1-S2 regular, no murmurs, no tachycardia, no gallops, no rubs Abdomen: Soft, nontender, no organomegaly, bowel sounds present, morbidly obese Neuro: No focal deficits, no facial deformity, AO x3, power 5/5 in all limbs A&P Assessment and plan (1) Cough: Status: Acute (2) Emphysema lung: Status: Acute (3) COPD (chronic obstructive pulmonary disease): Status: Acute (4) Suicidal ideation: Status: Acute (5) Polysubstance abuse: Status: Acute (6) Schizophrenia, history of multiple episodes, in partial remission: Status: Acute Additional A&P Information Cough: Most likely secondary to mild COPD exacerbation because of the bronchitis Patient does have leukocytosis. Most likely secondary to bronchitis. Patient has remained afebrile and hemodynamically stable during hospitalization. Check sputum culture, procalcitonin, CT chest. For now start patient empirically on doxycycline and levofloxacin. Most likely patient would require 5-day course. Start patient on prednisone 40 mg daily for 5 days. Start patient on Advair, Spiriva for possible COPD. Patient will most likely to follow-up with pulmonology as an outpatient. Suicidal ideation/schizophrenia: As per psychiatric team. Thank you for involving us in care of Mr. Mauro. Consult Attestations Medical Necessity Statement: As per primary team. Time Spent in Patient Care: Greater than 35 minutes (>than 50% of time spent in counselling and/or direct pt care on unit) . Coding Level of Care Code Acute [employer] for Germán Desaid Diagnoses Cough R05 Emphysema lung J43.9 COPD (chronic obstructive pulmonary disease) J44.9 Suicidal ideation R45.851 Polysubstance abuse F19.10 Schizophrenia, history of multiple episodes, in partial remission F20.9
[2020-09-15] MEDS: doxycycline 100 mg Tablet PO (18:52)
[2020-09-15 20:05] VITALS: PULSE 68; RESP 16; O2SAT 94
[2020-09-15 20:10] VITALS: PULSE 67; RESP 16; O2SAT 95
[2020-09-15 20:38] VITALS: BP 119/75; PULSE 92; RESP 19; TEMP 37.3; O2SAT 95
[2020-09-15] MEDS: ibuprofen 200 mg Tablet 400 MG PO (21:04)
--- NOTE | 2020-09-15 21:10 | PC.NURSE ---
pt requested cough and pain meds. Robitussin w/codeine and motrin given.
--- NOTE | 2020-09-15 22:45 | PC.NURSE ---
pt resting quietly with both eyes closed.
[2020-09-16] MEDS: guaiFENesin-codeine UDC 10 mL PO ×3 (02:31→10:56)
--- NOTE | 2020-09-16 02:32 | PC.NURSE ---
PT CAME TO DESK REQUESTED ICE WATER AND ICE CREAM. UNIT IS OUT OF ICE CREAM, BUT PT AGREED TO HAVE FAROESE ICE. PT NOTED TO CONTINUE TO COUGH HARD WHILE AWAKE. PT GIVEN COUGH MED.
[2020-09-16 05:28] VITALS: BP 112/80; PULSE 75; RESP 15; TEMP 37; O2SAT 98
[2020-09-16] MEDS: levoFLOXacin 500 mg Tablet PO (06:36)
[2020-09-16] MEDS: lamoTRIgine 25 mg Tablet PO (07:45)
[2020-09-16] MEDS: propranolol 20 mg Tablet PO (07:45)
[2020-09-16] MEDS: doxycycline 100 mg Tablet PO (07:45)
[2020-09-16] MEDS: montelukast sodium 10 mg Tablet PO (07:46)
[2020-09-16] MEDS: predniSONE 20 mg Tablet 40 MG PO (07:46)
[2020-09-16] MEDS: thiamine 100 mg Tablet PO (07:46)
[2020-09-16] MEDS: folic acid 1 mg Tablet PO (07:46)
[2020-09-16] MEDS: multivitamin therapeutic Tablet 1 TAB PO (07:46)
[2020-09-16 07:50] LABS: Basophils # 0.1 10^3/uL (0.0-0.1); Basophils % 0.8 %; Eosinophils # 0.5 10^3/uL (0.0-0.8); Eosinophils % 3.4 %; Hematocrit 45.2 % (42.0-52.0); Lymphocytes # 2.9 10^3/uL (0.8-4.8); Lymphocytes % 20.8 %; Mean Corpuscular HGB Conc 33.2 g/dL (30.0-36.0); Mean Corpuscular Hemoglobin 30.3 pg (28.0-34.0); Mean Corpuscular Volume 91.3 fL (80-94); Mean Platelet Volume 10.5 fL (7.4-10.4); Monocytes # 1.4 10^3/uL (0.2-0.9); Neutrophils # 8.71 10^3/uL (1.8-7.7); Neutrophils % 62.8 %; Nucleated Red Blood Cells % 0 %; Platelet Count 334 10^3/cmm (130-400); Red Blood Count 4.95 10^6/uL (4.1-5.3); Red Cell Distribution Width 13.2 % (12.1-15.1); White Blood Count 13.9 10^3/uL (4.0-10.0)
[2020-09-16 08:08] LABS: Alanine Aminotransferase 15 U/L (0-41); Albumin Level 3.3 g/dL (3.5-5.2); Alkaline Phosphatase 152 IU/L (40-130); Anion Gap 11.5 (5-19); Aspartate Amino Transferase 13 U/L (0-40); Blood Urea Nitrogen 14 mg/dL (6-20); Calcium 8.5 mg/dL (8.5-10.5); Carbon Dioxide 29 mmol/L (22-29); Chloride 101 mmol/L (98-107); Globulin 2.4 g/dL (1.3-4.6); Glomerular Filtration Rate 103.6 mL/min (90-130); Glucose 92 mg/dL (65-115); Osmolality Calculated 284 mOsm/kg (285-295); Potassium 4.5 mmol/L (3.5-5.1); Sodium 137 mmol/L (136-145); Total Bilirubin 0.2 mg/dL (0.15-1.2); Total Protein 5.7 g/dL (6.6-8.7)
[2020-09-16 08:20] VITALS: PULSE 75; RESP 16; O2SAT 96
[2020-09-16] MEDS: albuterol 8 gm MDI 1 PUFF INHALATION (08:20)
[2020-09-16 08:22] LABS: Procalcitonin 0.03 ng/mL (0-0.5)
[2020-09-16] MEDS: nicotine 2 mg Gum BUCCAL (10:56)
--- NOTE | 2020-09-16 10:57 | PC.NURSE ---
Addendum entered by Kira Skelton LPN 09/16/20 10:57: ERROR TO NOTE ABOVE, 10 ML GIVEN NOT 4 Original Note: PRN ROBITUSSIN 4 ML GIVEN PO PER PT C/O COUGH
[2020-09-16 12:03] VITALS: BP 112/80; PULSE 75; RESP 16; TEMP 36.9; O2SAT 96
--- NOTE | 2020-09-16 12:57 | PM.NDC ---
Diagnoses at Discharge Discharge Diagnosis (1) Cough: Status: Acute (2) Emphysema lung: Status: Acute (3) COPD (chronic obstructive pulmonary disease): Status: Acute (4) Suicidal ideation: Status: Resolved (5) Polysubstance abuse: Status: Acute (6) Schizophrenia, history of multiple episodes, in partial remission: Status: Acute Reason for Visit Reason for Visit: SI/ HI/ PARANOID SCHIZOPHRENIC Brief History: History of Present Illness Jarett Frazier is a 45 year old male Chief Complaint: Psychiatric Symptoms Stated Complaint: SI/ HI/ PARANOID SCHIZOPHRENIC Time Seen by Provider: 09/13/20 16:39 Source: patient and EMS Mode of arrival: EMS Limitations: no limitations History of Present Illness: HPI Narrative: Patient is a 45-year-old male with a history of schizophrenia who presents to the emergency department with suicidal ideation. He states he has been off his medications for about 2 months and earlier today he got in an argument with his girlfriend and it made him really upset that he thought about killing himself. His plan was to walk into traffic and allow a vehicle to hit him. He also has thoughts of hurting his girlfriend. He is here to be evaluated for the above. MD complaint: suicidal ideation Onset (ago): hour(s) Duration: constant History of same: Yes Relieving factors: none Exacerbating factors: drug use Context: recent alcohol abuse, recent drug abuse and significant life stressor Associated psychiatric symptoms: suicidal ideation and racing thoughts Associated symptoms: Reports suicidal ideation and racing thoughts; Deny auditory hallucinations, visual hallucinations, delusions or depression If self harm: admits thoughts of self harm and has plan. He was admitted to the neuropsychiatric unit for definitive treatment of those issues. He presents today reporting that he has had past psychiatric hospitalizations both here and away from here. He reports outpatient services in [facility]. He reports he has no medications but that he currently is not on them. He reports a suicide attempt about a year ago. He reports that he smokes 1 pack cigarettes a day, drinks alcohol occasionally, has marijuana occasionally, denies any other illicit drug use. He reports he has been to a rehab years ago and denies having a DUI. 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 When asked about medications that he is been on in the past that helped he endorsed that Klonopin was the only thing that was helpful. We reviewed all of his other medications and he talked about antipsychotics that he has had in the past. He talked about antidepressant treatment in the past and other anxiety medications and SSRIs. He initially was resistant to trying something other than Klonopin. But ultimately we discussed the risks, benefits and alternatives of Lamictal including Hernandez-Howard syndrome and propranolol and he understood the procedure as is documented in this note. We reviewed his past notes including his last hospitalization and an outpatient assessment at [facility]. An excerpt is included below and he denies substantive changes at that time. Per his 04/24/2020 [facility] outpatient psychiatric evaluation: [facility] History and Physical Time In: 09:00 Time Out: 09:30 Chief Complaint: I need my Klonopin History of Present Illness: This is a 44-year-old male who comes in today with no prior treatment at this clinic or at [facility] [place] looks like, and I do not have access to that progress note. Patient comes in today after having presented to the emergency room a little over a month ago request benzodiazepines. Today he is requesting the same thing saying he wants to be on 3 mg of Klonopin daily as that is what he has been on in the past. He tells me that he has a history of schizophrenia and says that he has been hospitalized a number of times , but he does not give a specific number so we get somewhere between 5 and 10 times. He says these admissions are usually for 3 to 4 days in length but one of them may have been up to 2 weeks. When asking what kind of symptoms he had he said I just did not know what was going on and nothing made since . He said there were voices on and off but they were noncommand . When I ask him about strange thoughts such as paranoia he says oh yeah I thought everyone was out to get me . When asked him about treatment he said we will me and my doctors agreed that antipsychotics were not good for me and his anxiety keep anxiety under control I keep my schizophrenia under control so they were just using Klonopin for me . He says that he is been on Risperdal and Haldol and Zyprexa in the past and he says he had to stop them due to side effects, but he was not able to specifically say which side effects. He said he has had a number of suicide attempts in which he is tried to cut himself numerous times, overdose, hang himself, tried to shoot himself but denies any suicidal ideations at this time and he denies any other history of self-harm. He says his last admission was about 2 weeks ago for 4 days which would mean he was in the ER about 4 weeks ago to get benzodiazepines, and then presented to an admission in [place] somewhere a few weeks after that. Overall he is fairly nonspecific about his past, he is quite organized, logical, linear and goal-directed and he has no sign of internal preoccupation and he currently denies any hallucinations or delusions. He is quiet and soft-spoken and says he just wants his Klonopin. When I told him that if he does in fact have a history of schizophrenia benzodiazepines or not the primary treatment and as a matter fact or not primary long-term treatment management for any disorder. He says that he does not want any antipsychotics, and he does not want any antidepressants or any other management for anxiety other than Klonopin or Ativan. He tells me that he has had a history of heavy drinking in which he would drink a 12 pack/day on a daily basis with hard liquor as well. He says now he drinks on occasion and his last alcohol was within the last month he says. He also does use marijuana on a daily basis in the past but says now he uses on occasion and he last used 2 months ago. He also smokes 1 pack/day of cigarettes. 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 He most recently got out of skilled nursing in September 2017 and is not on probation at this time. I told him that I feel uncomfortable using benzodiazepines as a primary treatment for any disorder, and that is especially the case if he has schizophrenia it would be woefully undertreated with only Klonopin. I told him that I be more than happy to discuss antipsychotic treatment and antidepressant treatment for anxiety and psychosis management but he refused these options. I told him that if he wished to stay at this clinic it might be best for us to get past medical records from hospitalizations or outpatient records and that I would be happy to review those and consider small doses of benzodiazepines as part of temporary treatment in the future but not primary treatment. It is unclear what he plans to do, but he indicated that he was not interested in this treatment plan. History Past Psychiatric History: Somewhere between 5 and 10 hospitalizations, the last of which was 2 weeks ago for 4 days, multiple suicide attempts and gestures by overdosing, trying to hang himself, trying to shoot himself, cutting his wrist. Family History: Noncontributory Past Medical History: Denies medical issues Substance Use History: Alcohol: Started as a teenager, has been a heavy daily drinker for years, he says he drinks on occasion now on last drink within the last month . Marijuana: Said heavy daily user since a teenager, last used 2 months ago. 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 Nicotine: Smokes 1 pack/day, he says he has been on Wellbutrin and Chantix in the past for smoking cessation but that they did not help him. Social History: He has been in and out of homeless shelters over the last 2 years, currently he is renting a room from someone. He says he dropped out after the 11th grade because he got kicked out of school for not doing detentions, ended up getting his GED. He grew up between [place] and [place]. He has 4 children ages 26, 1915 and 13. Hospital Course Hospital Course Patient presented to the emergency department endorsing depression, being off his meds, suicidality and recent relapse on drugs. He was admitted to the neuropsychiatric unit for definitive treatment of those issues. On the unit he slowly acclimated to the individual, group therapies provided we restarted medications he also had significant issues with his lungs requiring a consult and antibiotics that were continued after discharge. He showed marked improvement and was able to contract for safety prior to discharge. During the hospitalization, patient had routine laboratory studies which were within normal limits except for few outliers. Additionally there was a general medical evaluation which was also within normal limits and revealed no new acute processes. Discharge Summary: At the time of discharge, he denied psychosis or lethality. Mood and anxiety were well managed. Patient endorsed a plan to avoid all drugs of abuse and follow-up with the aftercare recommendations of the treatment team. Patient was evaluated and deemed to be absent credible lethality, and had achieved the maximum benefit from an inpatient hospitalization, so was discharged. Involuntary Hold Information 96 Hour Hold: 96 Hour Involuntary Admission: Yes 96 Hour Hold Ending Date: 09/19/20 96 Hour Hold Ending Time: 00:01 Mental Status Exam MSE Comments: This is an underweight white male in hospital scrubs with limited grooming and eye contact. No abnormal movements. Cooperative with exam in no acute distress. Speech was normal rate and volume. Mood described as better, affect congruent. Thought process organized. Thought content: Patient denied suicidal or homicidal ideation, no delusions reported or noted, he denied any auditory or visual hallucinations. Attention and concentration were improving. And memory was mostly reliable but none were formally tested. He is alert and oriented x3. Insight and judgment are improving, impulse control is improving, intellectual ability borderline to limited. Discharge Data Data Completed and Pending: Completed Studies During Hospitalization Category Date Time Status CT chest wo con 7 1250 Routine Cat Scan 09/15/20 15:23 Completed Pending at discharge Category Date Time Status Sputum Culture an d Gram Stain Stat Lab 09/15/20 15:32 Results Vitals: Last Vital Signs Temp 98.4 F 09/16/20 12:03 Pulse 75 09/16/20 12:03 Resp 16 09/16/20 12:03 BP 112/80 09/16/20 12:03 Pulse Ox 96 09/16/20 12:03 Discharge Plan Discharge Patient Disposition: Home Condition: Stable Prescriptions: New lamotrigine 25 mg Tablet 25 mg PO DAILY 18 Days Qty: 39 RF: 0 propranolol 20 mg Tablet 20 mg PO TID 30 Days Qty: 90 RF: 1 Vitamin B-1 (mononitrate) 100 mg Tablet 100 mg PO DAILY 30 Days Qty: 30 RF: 1 ziprasidone HCl 40 mg Capsule 40 mg PO 0700,1700 30 Days Qty: 60 RF: 1 Lamictal 100 mg tablet 100 mg PO DAILY 30 Days Qty: 30 RF: 1 folic acid 1 mg Tablet 1 mg PO DAILY 30 Days Qty: 30 RF: 1 Continued ibuprofen 200 mg Tablet 200 - 400 mg PO Q6H PRN (Reason: PAIN/HEADACHE) RF: 0 montelukast 10 mg tablet 10 mg PO DAILY 30 Days Qty: 30 RF: 1 albuterol sulfate 90 mcg/actuation HFA aerosol inhaler 2 inh INHALATION Q4H PRN (Reason: shortness of breath or wheezing) 30 Days Qty: 6.7 RF: 1 Discontinued methylprednisolone [Medrol (Ruben)] 4 mg tablets,dose pack See Rx Instructions .ROUTE .COMPLEX Qty: 21 RF: 0 Discharge Orders: Discharge Order (Routine); Ordered 09/16/20 Ordered By: Pedrito Mejias Discharge Diet: Regular Discharge Activity: Increase activity as tolerated Patient Instructions: Depression (DC), Suicide Prevention for Adults (DC), Anxiety (DC), Opioid Safety Discharge Attestations NPU Time Spent in Discharge Care*: less than 30 min Specific Discharge Activities: Specific discharge activities: educating patient, discussing with employment evaluator/case manager/social workers/dc planners, documenting/other paperwork and evaluating patient/reviewing data Status at Discharge: Cognitive status at discharge: cognitively intact, Behavioral status at discharge: can be uncooperative, Coding Level of Care Code Acute Chg FW DC note Diagnoses Cough R05 Emphysema lung J43.9 COPD (chronic obstructive pulmonary disease) J44.9 Suicidal ideation R45.851 Polysubstance abuse F19.10 Schizophrenia, history of multiple episodes, in partial remission F20.9
--- NOTE | 2020-09-16 13:52 | PM.PN ---
Subjective Subjective: Interval history: No events overnight. Patient states he is feeling better after using the nurse. Denies any nausea vomiting, headache. Vitals/I&O/Wt Last Vital Signs Temp 98.4 F 09/16/20 12:03 Pulse 75 09/16/20 12:03 Resp 16 09/16/20 12:03 BP 112/80 09/16/20 12:03 Pulse Ox 96 09/16/20 12:03 Physical Exam Narrative: EXAM NARRATIVE: EXAM NARRATIVE: General: No acute distress, AO x3, HEENT: PERRLA, pupils bilaterally equal and reactive Chest: Bilateral bronchial breath sounds, decreased air entry in the right upper zone, air entry all over otherwise. CVS: S1-S2 regular, no murmurs, no tachycardia, no gallops, no rubs Abdomen: Soft, nontender, no organomegaly, bowel sounds present, morbidly obese Neuro: No focal deficits, no facial deformity, AO x3, power 5/5 in all limbs Data : 09/16/20 07:37 09/16/20 07:37 Other Labs: Laboratory Results WBC 13.9 10^3/uL (4.0-10.0) H 09/16/20 07:37 RBC 4.95 10^6/uL (4.1-5.3) 09/16/20 07:37 Hgb 15.0 g/dL (11.7-16.6) 09/16/20 07:37 Hct 45.2 % (42.0-52.0) 09/16/20 07:37 MCV 91.3 fL (80-94) 09/16/20 07:37 MCH 30.3 pg (28.0-34.0) 09/16/20 07:37 MCHC 33.2 g/dL (30.0-36.0) 09/16/20 07:37 RDW 13.2 % (12.1-15.1) 09/16/20 07:37 Plt Count 334 10^3/cmm (130-400) 09/16/20 07:37 MPV 10.5 fL (7.4-10.4) H 09/16/20 07:37 Neut % (Auto) 62.8 % 09/16/20 07:37 Lymph % (Auto) 20.8 % 09/16/20 07:37 [place] % (Auto) 10.0 % 09/16/20 07:37 Eos % (Auto) 3.4 % 09/16/20 07:37 Baso % (Auto) 0.8 % 09/16/20 07:37 Neut # (Auto) 8.71 10^3/uL (1.8-7.7) H 09/16/20 07:37 Lymph # (Auto) 2.9 10^3/uL (0.8-4.8) 09/16/20 07:37 [place] # (Auto) 1.4 10^3/uL (0.2-0.9) H 09/16/20 07:37 Eos # (Auto) 0.5 10^3/uL (0.0-0.8) 09/16/20 07:37 Baso # (Auto) 0.1 10^3/uL (0.0-0.1) 09/16/20 07:37 Nucleated RBC % (auto) 0 % 09/16/20 07:37 Nucleated RBCs # 0.0 /100WBC 09/16/20 07:37 Sodium 137 mmol/L (136-145) 09/16/20 07:37 Potassium 4.5 mmol/L (3.5-5.1) 09/16/20 07:37 Chloride 101 mmol/L (98-107) 09/16/20 07:37 Carbon Dioxide 29 mmol/L (22-29) 09/16/20 07:37 Anion Gap 11.5 (5-19) 09/16/20 07:37 BUN 14 mg/dL (6-20) 09/16/20 07:37 Creatinine 0.8 mg/dL (0.7-1.2) 09/16/20 07:37 GFR Calculation 103.6 mL/min (90-130) 09/16/20 07:37 Glucose 92 mg/dL (65-115) 09/16/20 07:37 Calculated Osmolality 284 mOsm/kg (285-295) L 09/16/20 07:37 Calcium 8.5 mg/dL (8.5-10.5) 09/16/20 07:37 Total Bilirubin 0.2 mg/dL (0.15-1.2) 09/16/20 07:37 AST 13 U/L (0-40) 09/16/20 07:37 ALT 15 U/L (0-41) 09/16/20 07:37 Alkaline Phosphatase 152 IU/L (40-130) H 09/16/20 07:37 Total Protein 5.7 g/dL (6.6-8.7) L 09/16/20 07:37 Albumin 3.3 g/dL (3.5-5.2) L 09/16/20 07:37 Globulin 2.4 g/dL (1.3-4.6) 09/16/20 07:37 Procalcitonin 0.03 ng/mL (0-0.5) 09/16/20 07:37 TSH 0.98 uIU/mL (0.27-4.20) 09/13/20 17:00 Urine Color Straw (Yellow) 09/13/20 17:00 Urine Appearance Clear (CLEAR) 09/13/20 17:00 Urine pH 5 (5-7) 09/13/20 17:00 Ur Specific [place] 1.020 (1.005-1.030) 09/13/20 17:00 Urine Protein Neg (Negative) 09/13/20 17:00 Urine Glucose (UA) Norm (Normal) 09/13/20 17:00 Urine Ketones Negative (Negative) 09/13/20 17:00 Urine Blood Neg (Negative) 09/13/20 17:00 Urine Nitrate Negative (Negative) 09/13/20 17:00 Urine Bilirubin Neg (Negative) 09/13/20 17:00 Urine Urobilinogen Norm mg/dL (Negative) 09/13/20 17:00 Ur Leukocyte Esterase Negative (Negative) 09/13/20 17:00 Salicylates < 0.3 mg/dL (3-10) L 09/13/20 17:00 Urine Opiates Screen Negative ng/mL (Negative) 09/13/20 17:00 Acetaminophen < 5.0 ug/mL (10-30) L 09/13/20 17:00 Ur Barbiturates Screen Negative ng/mL (Negative) 09/13/20 17:00 Ur Phencyclidine Scrn Negative ng/mL (Negative) 09/13/20 17:00 Ur Amphetamines Screen Positive ng/mL (Negative) H 09/13/20 17:00 U Benzodiazepines Scrn Positive ng/mL (Negative) H 09/13/20 17:00 Urine Cocaine Screen Negative ng/mL (Negative) 09/13/20 17:00 U Marijuana (THC) Screen Positive ng/mL (Negative) H 09/13/20 17:00 Ethyl Alcohol 62 mg/dL (0-10) H 09/13/20 17:[address] 09/15/20 15:23 IMPRESSION: 1. Negative for fracture or dislocation, contour abnormalities described of the right 3rd and 4th ribs are not appreciated on this exam. 2. Severe emphysematous changes with a large right upper lobe bulla. 3. Left lower lobe 5.2 mm nodule and right middle lobe 5.8 mm nodule. For patients at low risk (minimal or absent history of smoking and of other known risk factors), no routine follow-up is indicated. For patients at high risk (history of smoking or of other known risk factors), consider optional CT Chest at 12 months. (Reference: Tamar) REFERENCES: Tamar H, et al. Guidelines for Management of Incidental Pulmonary Nodules Detected on CT Images: From the Fleischner Society 2017. Radiology. 2017;284(1):228-243. Radiation Dose CTDIVOL = (mGy): DLP = 479 (mGy-cm) Micro: Microbiology 09/16/20 02:24 MRSA Culture - Final Nose 09/15/20 15:32 Gram Stain - Final Sputum - Expectorated Sputum A&P Assessment and plan (1) Cough: Status: Acute (2) Emphysema lung: Status: Acute (3) COPD (chronic obstructive pulmonary disease): Status: Acute (4) Suicidal ideation: Status: Acute (5) Polysubstance abuse: Status: Acute (6) Schizophrenia, history of multiple episodes, in partial remission: Status: Acute Additional A&P Information Cough: Most likely secondary to mild COPD exacerbation because of the bronchitis Pro-Damián negative, leukocytosis improving. CT chest results appreciated. No active consolidation, rib fracture or pneumothorax. For now start patient empirically on doxycycline and levofloxacin. Most likely patient would require 5-day course. Start patient on prednisone 40 mg daily for 5 days. Start patient on Advair, Spiriva for possible COPD. Patient will most likely to follow-up with pulmonology as an outpatient. Suicidal ideation/schizophrenia: As per psychiatric team. Thank you for involving us in care of Mr. Mauro. Patient stable to be discharged from medicine point of view. He should be discharged on oral doxycycline levofloxacin and prednisone for 5 days along with Advair and Spiriva as an relation treatment. Patient should follow-up with pulmonology as an outpatient for treatment of chronic lung disease. Attestations Medical Necessity Statement*: As per primary team. Time Spent in Patient Care: Greater than 35 minutes (>than 50% of time spent in counselling and/or direct pt care on unit). Coding Level of Care Code Acute Reimbursement Liaison for [facility] Fwd Diagnoses Cough R05 Emphysema lung J43.9 COPD (chronic obstructive pulmonary disease) J44.9 Suicidal ideation R45.851 Polysubstance abuse F19.10 Schizophrenia, history of multiple episodes, in partial remission F20.9
--- NOTE | 2020-10-01 11:35 | P.DS_ITS ---
Diagnoses at Discharge Discharge Diagnosis (1) Cough: Status: Acute (2) Emphysema lung: Status: Acute (3) COPD (chronic obstructive pulmonary disease): Status: Acute (4) Suicidal ideation: Status: Resolved (5) Polysubstance abuse: Status: Acute (6) Schizophrenia, history of multiple episodes, in partial remission: Status: Acute Reason for Visit Reason for Visit: SI/ HI/ PARANOID SCHIZOPHRENIC Brief History: History of Present Illness Jarett Frazier is a 45 year old male Chief Complaint: Psychiatric Symptoms Stated Complaint: SI/ HI/ PARANOID SCHIZOPHRENIC Time Seen by Provider: 09/13/20 16:39 Source: patient and EMS Mode of arrival: EMS Limitations: no limitations History of Present Illness: HPI Narrative: Patient is a 45-year-old male with a history of schizophrenia who presents to the emergency department with suicidal ideation. He states he has been off his medications for about 2 months and earlier today he got in an argument with his girlfriend and it made him really upset that he thought about killing himself. His plan was to walk into traffic and allow a vehicle to hit him. He also has thoughts of hurting his girlfriend. He is here to be evaluated for the above. MD complaint: suicidal ideation Onset (ago): hour(s) Duration: constant History of same: Yes Relieving factors: none Exacerbating factors: drug use Context: recent alcohol abuse, recent drug abuse and significant life stressor Associated psychiatric symptoms: suicidal ideation and racing thoughts Associated symptoms: Reports suicidal ideation and racing thoughts; Deny auditory hallucinations, visual hallucinations, delusions or depression If self harm: admits thoughts of self harm and has plan. He was admitted to the neuropsychiatric unit for definitive treatment of those issues. He presents today reporting that he has had past psychiatric hospitalizations both here and away from here. He reports outpatient services in [facility]. He reports he has no medications but that he currently is not on them. He reports a suicide attempt about a year ago. He reports that he smokes 1 pack cigarettes a day, drinks alcohol occasionally, has marijuana occasionally, denies any other illicit drug use. He reports he has been to a rehab years ago and denies having a DUI. 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 When asked about medications that he is been on in the past that helped he endorsed that Klonopin was the only thing that was helpful. We reviewed all of his other medications and he talked about antipsychotics that he has had in the past. He talked about antidepressant treatment in the past and other anxiety medications and SSRIs. He initially was resistant to trying something other than Klonopin. But ultimately we discussed the risks, benefits and alternatives of Lamictal including Hernandez-Howard syndrome and propranolol and he understood the procedure as is documented in this note. We reviewed his past notes including his last hospitalization and an outpatient assessment at [facility] [place]. An excerpt is included below and he denies substantive changes at that time. Per his 04/24/2020 [facility] [place] outpatient psychiatric evaluation: [facility] [place] History and Physical Time In: 09:00 Time Out: 09:30 Chief Complaint: I need my Klonopin History of Present Illness: This is a 44-year-old male who comes in today with no prior treatment at this clinic or at [facility] since 2005 looks like, and I do not have access to that progress note. Patient comes in today after having presented to the emergency room a little over a month ago request benzodiazepines. Today he is requesting the same thing saying he wants to be on 3 mg of Klonopin daily as that is what he has been on in the past. He tells me that he has a history of schizophrenia and says that he has been hospitalized a number of times , but he does not give a specific number so we get somewhere between 5 and 10 times. He says these admissions are usually for 3 to 4 days in length but one of them may have been up to 2 weeks. When asking what kind of symptoms he had he said I just did not know what was going on and nothing made since . He said there were voices on and off but they were noncommand . When I ask him about strange thoughts such as paranoia he says oh yeah I thought everyone was out to get me . When asked him about treatment he said we will me and my doctors agreed that antipsychotics were not good for me and his anxiety keep anxiety under control I keep my schizophrenia under control so they were just using Klonopin for me . He says that he is been on Risperdal and Haldol and Zyprexa in the past and he says he had to stop them due to side effects, but he was not able to specifically say which side effects. He said he has had a number of suicide attempts in which he is tried to cut himself numerous times, overdose, hang himself, tried to shoot himself but denies any suicidal ideations at this time and he denies any other history of self-harm. He says his last admission was about 2 weeks ago for 4 days which would mean he was in the ER about 4 weeks ago to get benzodiazepines, and then presented to an admission in [place] somewhere a few weeks after that. Overall he is fairly nonspecific about his past, he is quite organized, logical, linear and goal-directed and he has no sign of internal preoccupation and he currently denies any hallucinations or delusions. He is quiet and soft-spoken and says he just wants his Klonopin. When I told him that if he does in fact have a history of schizophrenia benzodiazepines or not the primary treatment and as a matter fact or not primary long-term treatment management for any disorder. He says that he does not want any antipsychotics, and he does not want any antidepressants or any other management for anxiety other than Klonopin or Ativan. He tells me that he has had a history of heavy drinking in which he would drink a 12 pack/day on a daily basis with hard liquor as well. He says now he drinks on occasion and his last alcohol was within the last month he says. He also does use marijuana on a daily basis in the past but says now he uses on occasion and he last used 2 months ago. He also smokes 1 pack/day of cigarettes. 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 He most recently got out of residential in September 2017 and is not on probation at this time. I told him that I feel uncomfortable using benzodiazepines as a primary treatment for any disorder, and that is especially the case if he has schizophrenia it would be woefully undertreated with only Klonopin. I told him that I be more than happy to discuss antipsychotic treatment and antidepressant treatment for anxiety and psychosis management but he refused these options. I told him that if he wished to stay at this clinic it might be best for us to get past medical records from hospitalizations or outpatient records and that I would be happy to review those and consider small doses of benzodiazepines as part of temporary treatment in the future but not primary treatment. It is unclear what he plans to do, but he indicated that he was not interested in this treatment plan. History Past Psychiatric History: Somewhere between 5 and 10 hospitalizations, the last of which was 2 weeks ago for 4 days, multiple suicide attempts and gestures by overdosing, trying to hang himself, trying to shoot himself, cutting his wrist. Family History: Noncontributory Past Medical History: Denies medical issues Substance Use History: Alcohol: Started as a teenager, has been a heavy daily drinker for years, he says he drinks on occasion now on last drink within the last month . Marijuana: Said heavy daily user since a teenager, last used 2 months ago. Methamphetamine: He minimize use today saying he use a little bit in my 20s , but he spent 4 years in residential for methamphetamine possession and making meth. Nicotine: Smokes 1 pack/day, he says he has been on Wellbutrin and Chantix in the past for smoking cessation but that they did not help him. Social History: He has been in and out of homeless shelters over the last 2 years, currently he is renting a room from someone. He says he dropped out after the 11th grade because he got kicked out of school for not doing detentions, ended up getting his GED. He grew up between [place] and [place]. He has 4 children ages 26, 1915 and 13. Hospital Course Hospital Course Patient presented to the emergency department endorsing depression, being off his meds, suicidality and recent relapse on drugs. He was admitted to the neuropsychiatric unit for definitive treatment of those issues. On the unit he slowly acclimated to the individual, group therapies provided. We restarted medications he also had significant issues with his lungs requiring a consult and antibiotics that were continued after discharge. He showed marked improvement and was able to contract for safety prior to discharge. During the hospitalization, patient had routine laboratory studies which were within normal limits except for few outliers. Additionally there was a general medical evaluation which was also within normal limits and revealed no new acute processes. Discharge Summary: At the time of discharge, he denied psychosis or lethality. Mood and anxiety were well managed. Patient endorsed a plan to avoid all drugs of abuse and follow-up with the aftercare recommendations of the treatment team. Patient was evaluated and deemed to be absent credible lethality, and had achieved the maximum benefit from an inpatient hospitalization, so was discharged. Involuntary Hold Information 96 Hour Hold: 96 Hour Involuntary Admission: Yes 96 Hour Hold Ending Date: 09/19/20 96 Hour Hold Ending Time: 00:01 Mental Status Exam MSE Comments: This is an underweight white male in hospital scrubs with limited grooming and eye contact. No abnormal movements. Cooperative with exam in no acute distress. Speech was normal rate and volume. Mood described as better, affect congruent. Thought process organized. Thought content: Patient denied suicidal or homicidal ideation, no delusions reported or noted, he denied any auditory or visual hallucinations. Attention and concentration were improving. And memory was mostly reliable but none were formally tested. He is alert and oriented x3. Insight and judgment are improving, impulse control is improving, intellectual ability borderline to limited. Discharge Data Data Completed and Pending: Completed Studies During Hospitalization Category Date Time Status CT chest wo con 7 1250 Routine Cat Scan 09/15/20 15:23 Completed Vitals: Last Vital Signs Temp 98.4 F 09/16/20 12:03 Pulse 75 09/16/20 12:03 Resp 16 09/16/20 12:03 BP 112/80 09/16/20 12:03 Pulse Ox 96 09/16/20 12:03 Discharge Plan Discharge Patient Disposition: Home Condition: Stable Prescriptions: New lamotrigine 25 mg Tablet 25 mg PO DAILY 18 Days Qty: 39 RF: 0 propranolol 20 mg Tablet 20 mg PO TID 30 Days Qty: 90 RF: 1 Vitamin B-1 (mononitrate) 100 mg Tablet 100 mg PO DAILY 30 Days Qty: 30 RF: 1 ziprasidone HCl 40 mg Capsule 40 mg PO 0700,1700 30 Days Qty: 60 RF: 1 Lamictal 100 mg tablet 100 mg PO DAILY 30 Days Qty: 30 RF: 1 folic acid 1 mg Tablet 1 mg PO DAILY 30 Days Qty: 30 RF: 1 Continued ibuprofen 200 mg Tablet 200 - 400 mg PO Q6H PRN (Reason: PAIN/HEADACHE) RF: 0 montelukast 10 mg tablet 10 mg PO DAILY 30 Days Qty: 30 RF: 1 albuterol sulfate 90 mcg/actuation HFA aerosol inhaler 2 inh INHALATION Q4H PRN (Reason: shortness of breath or wheezing) 30 Days Qty: 6.7 RF: 1 Discontinued methylprednisolone [Medrol (Ruben)] 4 mg tablets,dose pack See Rx Instructions .ROUTE .COMPLEX Qty: 21 RF: 0 Discharge Orders: Discharge Order (Routine); Ordered 09/16/20 Ordered By: Pedrito Mejias Discharge Diet: Regular Discharge Activity: Increase activity as tolerated Patient Instructions: Depression (DC), Suicide Prevention for Adults (DC), Anxiety (DC), Opioid Safety Discharge Attestations NPU Time Spent in Discharge Care*: less than 30 min Specific Discharge Activities: Specific discharge activities: educating patient, discussing with pcp/other providers, discussing with cyanide case hardener/social workers/dc planners, documenting/other paperwork and evaluating patient/reviewing data Status at Discharge: Cognitive status at discharge: cognitively intact , Behavioral status at discharge: can be uncooperative , Coding Level of Care Code Acute Chg FW DC note Diagnoses Cough R05 Emphysema lung J43.9 COPD (chronic obstructive pulmonary disease) J44.9 Suicidal ideation R45.851 Polysubstance abuse F19.10 Schizophrenia, history of multiple episodes, in partial remission F20.9
== END 2020-09-16 13:40 | disposition home or self-care (01) | DRG 881 ==
LOC: ER 16:39 → NP 19:10
PROVIDERS: Student in an Organized Health Care Education/Training Program; Admitting Provider Psychiatry & Neurology Psychiatry; Emergency Provider Family Medicine; Visit Provider Psychiatry & Neurology Psychiatry
DX: F32.9 Major depressive disorder, single episode, unspecified (principal); R45.851 Suicidal ideations; F10.259 Alcohol dependence with alcohol-induced psychotic disorder, unspecified; R45.850 Homicidal ideations; F20.0 Paranoid schizophrenia; Z91.19 Patient's noncompliance with other medical treatment and regimen; F12.20 Cannabis dependence, uncomplicated; F11.10 Opioid abuse, uncomplicated; F19.10 Other psychoactive substance abuse, uncomplicated; F15.11 Other stimulant abuse, in remission; J43.9 Emphysema, unspecified
CPT/HCPCS: 36415; 71250; 80053; 80306; 80307; 81003; 84145; 84443; 85025; 87070; 87205; 87641; 94640; 94664; 99285; J3535; J7512